=== PATIENT | male | born 1940 | race Caucasian/White ===

== ENCOUNTER 2019-06-12 09:01 | Outpatient (REF) | payer MEDICARE, SELFPAY ==
[2019-06-12 10:47] LABS: INR 1.8 (0.9-1.1); Prothrombin Time 17.4 sec (9.3-11.0)
[2019-06-12 16:34] LABS: Bilirubin Negative (Negative); Blood Negative (Negative); Clarity Clear (Clear); Glucose Negative (Negative); Ketones Negative (Negative); Leukocyte Esterase Negative (Negative); Nitrite Negative (Negative)
[2019-06-12 17:06] LABS: TSH (W/Ref FT4) 0.52 uIU/mL (0.36-3.74)
== END 2019-06-12 09:21 ==
LOC: LBN 09:01
PROVIDERS: Visit Provider Internal Medicine
DX: E03.9 Hypothyroidism, unspecified (principal); I10 Essential (primary) hypertension; I25.2 Old myocardial infarction; Z79.01 Long term (current) use of anticoagulants; N39.0 Urinary tract infection, site not specified
CPT/HCPCS: 81003; 84443; 85610; 87086

== ENCOUNTER 2019-06-25 16:23 | Outpatient (REF) | payer MEDICARE, SELFPAY ==
[2019-06-25 16:59] LABS: INR 1.7 (0.9-1.1); Prothrombin Time 17.3 sec (9.3-11.0)
== END 2019-06-25 16:43 ==
LOC: LBN 16:23
PROVIDERS: Visit Provider Internal Medicine
DX: I25.2 Old myocardial infarction (principal); Z79.01 Long term (current) use of anticoagulants
CPT/HCPCS: 85610

== ENCOUNTER 2019-07-04 19:49 | Outpatient (REF) | payer MEDICARE, SELFPAY | END 2019-07-04 20:09 | LOC: LBN 19:49 | PROVIDERS: Visit Provider Internal Medicine | DX: R69 Illness, unspecified (principal); Z53.8 Procedure and treatment not carried out for other reasons | CPT/HCPCS: 85610 ==

== ENCOUNTER 2019-07-05 09:58 | Outpatient (REF) | payer MEDICARE, SELFPAY ==
[2019-07-05 10:24] LABS: INR 2.1 (0.9-1.1); Prothrombin Time 20.6 sec (9.3-11.0)
== END 2019-07-05 10:18 ==
LOC: LBN 09:58
PROVIDERS: Visit Provider Internal Medicine
DX: I25.2 Old myocardial infarction (principal); Z79.01 Long term (current) use of anticoagulants
CPT/HCPCS: 85610

== ENCOUNTER 2019-07-22 15:34 | Outpatient (REF) | payer MEDICARE, SELFPAY ==
[2019-07-22 16:23] LABS: INR 2.1 (0.9-1.1); Prothrombin Time 20.7 sec (9.3-11.0)
== END 2019-07-22 15:54 ==
LOC: LBN 15:34
PROVIDERS: Visit Provider Internal Medicine
DX: Z79.01 Long term (current) use of anticoagulants (principal); I25.2 Old myocardial infarction
CPT/HCPCS: 85610

== ENCOUNTER 2019-08-20 21:53 | Outpatient (REF) | payer MEDICARE, MEDICAID, SELFPAY ==
[2019-08-20 17:59] LABS: INR 1.8 (0.9-1.1); Prothrombin Time 18.2 sec (9.3-11.0)
== END 2019-08-20 22:13 ==
LOC: LBN 21:53
PROVIDERS: Visit Provider Internal Medicine
DX: Z79.01 Long term (current) use of anticoagulants (principal); Z51.81 Encounter for therapeutic drug level monitoring
CPT/HCPCS: 85610

== ENCOUNTER 2019-11-27 20:54 | Observation (INO) | payer OTHER, SELFPAY ==
[2019-11-27] VITALS (8 sets, daily range): BP systolic 160–170; BP diastolic 75; PULSE 58–82; RESP 40; TEMP 37.2; O2SAT 96–100
--- NOTE | 2019-11-27 20:59 | W.ED.GENAD ---
Discharge Plan Disposition Patient Disposition: [facility] INPATIENT Condition: Poor Discharge Details Chief Complaint: Orthopedic Clinical Impression: Hip fracture Primary Care Provider: Ashlyn Bowen ED Provider: Jennie Castellanos Home Meds and New Rx's Prescriptions: No Action risperidone [Risperdal] 0.5 mg tablet 0.5 mg PO TID RF: 0 donepezil [Aricept] 10 mg tablet 10 mg PO DAILY RF: 0 vitamin E 400 unit capsule 400 unit PO DAILY RF: 0 melatonin 3 mg capsule 6 mg PO HS RF: 0 trazodone 50 mg tablet 50 mg PO QHS RF: 0 rosuvastatin 40 mg tablet 20 mg PO DAILY RF: 0 lisinopril 5 mg tablet 5 mg PO DAILY RF: 0 levothyroxine 50 mcg capsule 50 mcg PO DAILY RF: 0 finasteride 5 mg tablet 5 mg PO DAILY RF: 0 duloxetine 20 mg capsule,delayed release(DR/EC) 40 mg PO DAILY RF: 0 diltiazem HCl [Tiazac] 180 mg capsule,extended release 24 hr 180 mg PO DAILY RF: 0 cyanocobalamin (vitamin B-12) 1,000 mcg tablet 1,000 mcg PO DAILY RF: 0 cholecalciferol (vitamin D3) 25 mcg (1,000 unit) capsule 25 mcg PO DAILY RF: 0 carboxymethylcellulose sodium 0.5 % drops 1 drp OP QID RF: 0 carbamide peroxide 6.5 % drops 2 drp OT DAILY RF: 0 Medical Decision Making Patient is a pleasantly confused 79-year-old male, coming by his , with chief complaint of fall and left hip pain. reports patient is on hospice for his dementia. She reports that he has had frequent falls over the past several weeks. Fell again tonight after tripping. Reports patient is not been able to get up since the fall secondary to left hip pain. She does not believe that he had suffered further injury. No loss of consciousness. On exam, patient is notably confused. He has a shortened and externally rotated left lower extremity. Pain with palpation over the left hip. Primarily concerned for femoral neck fracture. He has 2+ distal pulses. Exam is quite limited secondary to patient's mental status. I do not see any ecchymosis or other evidence of trauma. Lungs are clear, no pain in the chest, abdomen, pelvis. Pelvis does feel stable. Patient is quite uncomfortable and kind of movement is refusing to move the left leg. X-ray reviewed was significant for a left femoral fracture. Discussed this with the . Patient is currently on hospice and she does not believe that surgical fixation would be appropriate for him. However, as the patient is unable to sit up or ambulate, will need IV pain medication and set up at home for his current situation. I did speak with hospice nursing staff who advised hospitalist to admit. Spoke with hospitalist who agrees to admission for pain management until patient is able to be set up to be discharged home HPI General Mode of arrival: EMS. Date/Time Provider Initiated Documentation: 11/27/19 20:59. Limitations to Documentation: altered mental status. Information obtained by: family (), EMS, RN notes reviewed and old records reviewed. History of Present Illness 79 year old M presents to the emergency department with the chief complaint of left hip pain, Patient started experiencing this minute(s) and it has been constant. Immobilization improves symptom(s), Movement worsens symptoms . Patient notes other (frequent falls, inability to bear weight since fall); denies syncope. Patient did receive the following treatments prior to arrival, none Related Data Home Medications Medication Instructions Recorded Confirmed carbamide peroxide 6.5 % ear drops 2 drp OT DAILY ml 06/26/19 11/27/19 carboxymethylcellulose sodium 0.5 1 drp OP QID 06/26/19 11/27/19 % eye drops cholecalciferol (vitamin D3) 25 25 mcg PO DAILY 06/26/19 11/27/19 mcg (1,000 unit) capsule cyanocobalamin (vitamin B-12) 1,000 mcg PO DAILY 06/26/19 11/27/19 1,000 mcg tablet diltiazem HCl 180 mg capsule,24 180 mg PO DAILY 06/26/19 11/27/19 hr,extended release donepezil 10 mg tablet 10 mg PO DAILY 06/26/19 11/27/19 duloxetine 20 mg capsule,delayed 40 mg PO DAILY cap 06/26/19 11/27/19 release finasteride 5 mg tablet 5 mg PO DAILY 06/26/19 11/27/19 levothyroxine 50 mcg capsule 50 mcg PO DAILY 06/26/19 11/27/19 lisinopril 5 mg tablet 5 mg PO DAILY 06/26/19 11/27/19 melatonin 3 mg capsule 6 mg PO HS cap 06/26/19 11/27/19 rosuvastatin 40 mg tablet 20 mg PO DAILY 06/26/19 11/27/19 trazodone 50 mg tablet 50 mg PO QHS 06/26/19 11/27/19 vitamin E 400 unit capsule 400 unit PO DAILY 06/26/19 11/27/19 risperidone 0.5 mg tablet 0.5 mg PO TID tab 08/08/19 11/27/19 Allergies Allergy/AdvReac Type Severity Reaction Status Date / Time Iodinated Contrast Media AdvReac Unknown Swelling/Ed Unverified 11/27/19 20:57 jaime General Stated Complaint: Orthopedic BECCA: 4 Review of Systems Unobtainable due to mental status PFSH Medical History Aggressive behavior due to dementia no longer aggressive, per Alzheimers disease At risk for unsafe behavior Benign essential hypertension Benign prostatic hyperplasia Benign prostatic hyperplasia with urinary frequency Chest pain ETT negative at 10 mets Roldan-Morse respiration Cholelithiasis NOS Chronic ischemic heart disease IWMI 06/15, stenting RCA with 2 stents; EF 45% multiple WMA; Mild MR; Mild TR 06/21/02- 3 vessel disease; Prox and mid LAD, Prox LCX, RCA 10/16/02- Dobut stress echo; No ischemia 130 bpm/84% max pred 10/1606/11/06- Stress Test 01/18; EF 45-50% 03/14/18- 02/21 clinic visit w/ local medical referral coordinator/niacin Cognitive disorder Colonic polyp CPAP (continuous positive airway pressure) dependence still wears it regularly Disturbance of consciousness Dizziness and giddiness DNI (do not intubate) DNR (do not resuscitate) Elevated PSA Bx fibroglandular hyperplasia Encounter for hospice care discussion Family history of identical twins his twin 2012 from Alz Dz Fatty liver Frequent falls Goals of care, counseling/discussion Hemorrhoids Hoarding behavior family trying to get rid of excess he perseverates on his tools [place] (hard of hearing) will not wear his hearing aids hides them Hyperlipidemia Hypertriglyceridemia Impotence Insomnia Knee pain Mixed Alzheimer's and vascular dementia advanced, severe Nephrolithiasis Osteoarthritis Palliative care patient POLST (Physician Orders for Life-Sustaining Treatment) 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: got his GED in the [place] after going to trade school thru 10th grade Do you need help understanding health information?: Always current occupation: retired from [employer] What is your relationship status?: How often do you talk on the phone with friends or family?: never How often do you get together with friends or relatives?: twice per week Panel score (0-1 are the most socially isolated patients): 1 What type of physical activity do you participate in: walking and assisted ambulation Duration: 15-30 minutes/day Frequency: daily Special jamaal needs: No Seatbelt use: always Working smoke detector in home: Yes Fire extinguisher in home: Yes Do you feel safe at home: Yes Do you feel safe in your relationship?: Yes Additional Social history: Sally and [id number] Kiesha are his primary caregivers. Daughter lives in [place], but comes and helps when she can on weekends. Estranged from only son in [place]. He has 2 children, also out of touch. Wandering at night. exhausted. Continues to decline dramatically in 2020. Qualifies for hospice; not quite ready for this. Consult ordered Derick hides his hearing aids, refuses to wear them and his glasses. Does wear his CPAP at night though. Hasn't fallen recently. Very unsteady gait, very difficult to get out of his chair. Exam Const General: cooperative, healthy appearing, comfortable and no acute distress Nutritional Appearance: average body habitus and well nourished Orientation: alert, awake and not oriented x3 [facility] Head: normal to inspection, no palpable skull fracture, normocephalic and atraumatic Face and sinus: normal facial exam Eyes General: appearance normal, both eyes and all related structures Neck Neck: normal visual inspection, no meningeal signs and trachea midline Chest Chest: normal inspection of the chest, normal palpation of entire chest wall and no localized rib tenderness Resp Effort & Inspection: normal respiratory effort, able to speak in complete sentences and no respiratory distress Auscultation: clear to auscultation bilaterally Cardio Rate: regular rate Rhythm: regular rhythm Heart Sounds: S1 normal and S2 normal GI Inspection: normal to inspection Palpation: soft, no hepatosplenomegaly and nontender Skin General skin exam: no rashes or lesions noted Neuro General: patient alert, patient awake and not oriented x3 Gait: gait abnormal (unable to weight bear since injury) Extrem Left lower extremity: abnormal to inspection (externally rotated, shortened. 2+ distal pulses) Psych Appearance: grossly normal and well kempt Mental Status: mental status grossly normal Speech and Movement: speech and movement normal Course Vital Signs Vital signs: Vital Signs Temperature 37.2 C 11/27/19 20:51 Pulse 82 11/27/19 20:51 Respiratory Rate 40 H 11/27/19 20:51 Blood Pressure 170/75 H 11/27/19 20:51 Pulse Oximetry 100 11/27/19 20:51 Temperature 37.2 C 11/27/19 20:51 Temperature Source Skin 11/27/19 20:51 Pulse 82 11/27/19 20:51 Respiratory Rate 40 H 11/27/19 20:51 Blood Pressure 170/75 H 11/27/19 20:51 Blood Pressure Position Supine 11/27/19 20:51 Pulse Oximetry 100 11/27/19 20:51 Oxygen Delivery Method Room Air 11/27/19 20:51 Oxygen Flow Rate 0 11/27/19 20:51 Comment 11/27/19 20:51
--- NOTE | 2019-11-27 21:15 | DI.RAD_ITS ---
EXAM: XR HIP LT COMPLETE AP PELVIS CLINICAL HISTORY: fall. TECHNIQUE: 2D digital imaging was performed. COMPARISON: No exams were available for comparison FINDINGS: BONES: There is an acute comminuted intertrochanteric fracture of the left femur with moderate displa cement. No bony destructive lesion is seen. JOINTS: Degenerative changes are seen in the hips bilaterally. SOFT TISSUE: Vascular calcifications are seen in the soft tissues. IMPRESSION: Comminuted intertrochanteric fracture of the left femur. DATA REPOSITORY: RADIATION DOSE DELIVERED:
--- NOTE | 2019-11-27 22:18 | HPE_ITS ---
Date of service: 11/27/19 Time of Service: 22:18 Assessment and Plan Assessment and plan (1) Hip fracture: Status: Acute Assessment and plan: Hip fracture. Per 's wishes will not pursue any surgical intervention, will treat symptomatically. Will consult palliative care for follow up. History of Present Illness History of Present Illness Chief Complaint: fall Narrative: 79 male with advanced dementia, frequent falls. Fell tonight. In ER left hip fracture noted. indicates she does not want any surgical intervention, wishes treatment towards comfort. Mainly she wishes to find a way to bring him back home for whatever remaining time he has. Patient unable to provide any history but not evidencing any discomfort. Admitted for further management. Review of Systems Unobtainable due to mental condition PFSH Medical History Aggressive behavior due to dementia no longer aggressive, per Alzheimers disease At risk for unsafe behavior Benign essential hypertension Benign prostatic hyperplasia Benign prostatic hyperplasia with urinary frequency Chest pain ETT negative at 10 mets Roldan-Morse respiration Cholelithiasis NOS Chronic ischemic heart disease IWMI 06/15, stenting RCA with 2 stents; EF 45% multiple WMA; Mild MR; Mild TR 06/21/02- 3 vessel disease; Prox and mid LAD, Prox LCX, RCA 10/16/02- Dobut stress echo; No ischemia 130 bpm/84% max pred 10/1606/11/06- Stress Test 01/18; EF 45-50% 03/14/18- 02/21 clinic visit w/ local dental assistant medical assistant/niacin Cognitive disorder Colonic polyp CPAP (continuous positive airway pressure) dependence still wears it regularly Disturbance of consciousness Dizziness and giddiness DNI (do not intubate) DNR (do not resuscitate) Elevated PSA Bx fibroglandular hyperplasia Encounter for hospice care discussion Family history of identical twins his twin 2012 from Alz Dz Fatty liver Frequent falls Goals of care, counseling/discussion Hemorrhoids Hoarding behavior family trying to get rid of excess he perseverates on his tools [place] (hard of hearing) will not wear his hearing aids hides them Hyperlipidemia Hypertriglyceridemia Impotence Insomnia Knee pain Mixed Alzheimer's and vascular dementia advanced, severe Nephrolithiasis Osteoarthritis Palliative care patient POLST (Physician Orders for Life-Sustaining Treatment) 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: got his GED in the [place] after going to trade school thru 10th grade Do you need help understanding health information?: Always current occupation: retired from [employer] What is your relationship status?: How often do you talk on the phone with friends or family?: never How often do you get together with friends or relatives?: twice per week Panel score (0-1 are the most socially isolated patients): 1 What type of physical activity do you participate in: walking and assisted ambulation Duration: 15-30 minutes/day Frequency: daily Special jamaal needs: No Seatbelt use: always Working smoke detector in home: Yes Fire extinguisher in home: Yes Do you feel safe at home: Yes Do you feel safe in your relationship?: Yes Additional Social history: Sally and [id number] Kiesha are his primary caregivers. Daughter lives in [place], but comes and helps when she can on weekends. Estranged from only son in [place]. He has 2 children, also out of touch. Wandering at night. exhausted. Continues to decline dramatically in 2020. Qualifies for hospice; not quite ready for this. Consult ordered Derick hides his hearing aids, refuses to wear them and his glasses. Does wear his CPAP at night though. Hasn't fallen recently. Very unsteady gait, very difficult to get out of his chair. Meds Home Medications and Allergies Home Medications Medication Instructions Recorded Confirmed Type carbamide peroxide 6.5 % ear drops 2 drp OT DAILY ml 06/26/19 11/27/19 History carboxymethylcellulose sodium 0.5 1 drp OP QID 06/26/19 11/27/19 History % eye drops cholecalciferol (vitamin D3) 25 25 mcg PO DAILY 06/26/19 11/27/19 History mcg (1,000 unit) capsule cyanocobalamin (vitamin B-12) 1,000 mcg PO DAILY 06/26/19 11/27/19 History 1,000 mcg tablet diltiazem HCl 180 mg capsule,24 180 mg PO DAILY 06/26/19 11/27/19 History hr,extended release donepezil 10 mg tablet 10 mg PO DAILY 06/26/19 11/27/19 History duloxetine 20 mg capsule,delayed 40 mg PO DAILY cap 06/26/19 11/27/19 History release finasteride 5 mg tablet 5 mg PO DAILY 06/26/19 11/27/19 History levothyroxine 50 mcg capsule 50 mcg PO DAILY 06/26/19 11/27/19 History lisinopril 5 mg tablet 5 mg PO DAILY 06/26/19 11/27/19 History melatonin 3 mg capsule 6 mg PO HS cap 06/26/19 11/27/19 History rosuvastatin 40 mg tablet 20 mg PO DAILY 06/26/19 11/27/19 History trazodone 50 mg tablet 50 mg PO QHS 06/26/19 11/27/19 History vitamin E 400 unit capsule 400 unit PO DAILY 06/26/19 11/27/19 History risperidone 0.5 mg tablet 0.5 mg PO TID tab 08/08/19 11/27/19 History Allergies Allergy/AdvReac Type Severity Reaction Status Date / Time Iodinated Contrast Media AdvReac Unknown Swelling/Ed Unverified 11/27/19 20:57 jaime Exam Narrative Exam Narrative: 170/75, 82, 37.2, 18 (40 is last recorded, not to my exam), 100% RA. HEENT atraumatic; neck supple; lungs clear; heart RRR; abdomen soft and NT; extremities LLE everted and foreshorten\ed, distal CSM intact Results Last Vital Signs Temp 37.2 C 11/27/19 20:51 Pulse 82 11/27/19 20:51 Resp 40 H 11/27/19 20:51 BP 170/75 H 11/27/19 20:51 Pulse Ox 100 11/27/19 20:51 COVID-19 Screening Have you,or household,traveled outside [place] in last 14 days?: No Had IN PERSON contact w/suspected or confirmed C-19 person: No
[2019-11-27] MEDS: Normal Saline Flush 10 ML SYR IVP (22:22)
[2019-11-27] MEDS: Ketorolac 15 MG/ML VIAL IVP (22:22)
[2019-11-27] MEDS: ACETAMINOPHEN 1,000 MG/100 ML BTL 400 MG IVPB (22:28)
[2019-11-28 00:18] VITALS: BP 159/80; PULSE 71; RESP 16; TEMP 37.2; O2SAT 99
[2019-11-28] MEDS: Lidocaine 2% Jelly 11 ML SYR UR (00:50)
[2019-11-28] MEDS: Levothyroxine 50 MCG TAB PO (05:56)
[2019-11-28] MEDS: Normal Saline Flush 10 ML SYR IVP ×4 (07:43→20:58)
[2019-11-28 08:00] VITALS: BP 147/73; PULSE 67; RESP 16; TEMP 36.1; O2SAT 99
--- NOTE | 2019-11-28 08:08 | NUR.NOTE ---
Nursing Note: Patient unable to verbally give a pain scale 0-10. Patient did show facial grimacing and swear
[2019-11-28] MEDS: dilTIAZem CD 180 MG CAPCR PO (08:37)
[2019-11-28] MEDS: DULoxetine 20 MG CAP 40 MG PO (08:38)
[2019-11-28] MEDS: Lisinopril 5 MG TAB PO (08:38)
[2019-11-28] MEDS: risperiDONE 0.5 MG TAB PO ×3 (08:38→20:38)
[2019-11-28] MEDS: Finasteride 5 MG TAB PO (08:38)
--- NOTE | 2019-11-28 11:42 | PGE_ITS ---
Date of Service Date of service: 11/28/19 Time of Service: 10:44 Assessment and Plan Assessment and plan (1) Hip fracture: Status: Acute Assessment and plan: Left hip, partially displaced. Will be bedbound for at least several week. Will work with hospice team to get a hospital bed into his home while he is hospitalized here Pain not yet adequately controlled. Will continue on symptom management until he can tolerate movement in bed enough for and others to do his personal care. (2) Hospice care patient: Status: Chronic Assessment and plan: On hospice for his Alzheimer's dementia. Was fall frequently prior to him coming on hospice. Still at high risk for falls IF he is able to get OOB in the future. Explained to that hip fracture often shortens a patient's life significantly, due to the shock of the fracture alone... (3) Pain due to fracture: Status: Acute Assessment and plan: Explained that a broken bone such as a hip/femur usually requires narcotic pain medicine. Sally, his , admits she will have trouble keeping up with his pain medication. She is afraid that it will hasten his . We discussed 3 options for Derick's pain control: fentanyl patch at 12 mcg; morphine pump SC at 2-4 mg/hr (She doesn't want morphine, fears it); or hydromorphone by pump. I didn't think he needed such a strong medication as hydromorphone given his usual pain tolerance. She agrees that continuous pain control is the way to go. She opted for the patch. We will need to monitor him for 24-48 hrs to see if he tolerates the patch given that he is narcotic naive. (4) Frequent falls: Status: Chronic Assessment and plan: Getting worse over time. Related, I believe, to his dementia. Cause of his hip fracture. (5) Mixed Alzheimer's and vascular dementia: Status: Chronic Assessment and plan: Advanced. On hospice for same at home. still struggling with her 's illness, even though she recognizes that his identical twin 6 years ago of the same illness. (6) Alzheimers disease: Status: Chronic Qualifiers: Alzheimer's disease onset: late-onset Dementia behavioral disturbance: without behavioral disturbance Qualified Code(s): G30.1 - Alzheimer's disease with late onset; F02.80 - Dementia in other diseases classified elsewhere without behavioral disturbance Subjective Subjective Patient reports: still having pain Interval history since last seen: Derick fell at home and broke his hip. His pain was too great to control at home; his was advised by my colleague, Milena Bautista, to call the ambulance and have him brought to the ER. He was initially admitted on the hospitalist service, as there was confusion about his hospice status. I did review ANTONIETA Abraham's note from his ER visit; she was aware that Derick was already on hospice. However, this was somehow lost in translation. Given the fact that his fall is likely related to his Alzheimer's dementia, which is his hospice admitting diagnosis, he should be on hospice symptom management for this admission. His nurse, Paola and nursing assistants teacher [place] reported that Derick does have significant pain with movement. His was encouraging them NOT to give Derick morphine as she was afraid that it would make him worse. I explained when I came in that a fracture of a long bone is particularly painful for most people and I wanted to work with her to choose which pain control method she could support for her . NSAIDs alone are not appropriate for him in this context. Exam Narrative Exam Narrative: Gen: Elderly thin man lying in bed, on his back, with a furrowed brow, minimally responsive with words, doesn't answer most questions Neuro: oriented only to self, unclear whether he recognized his , was staring off for most of my visit, moving BUE Lungs: CTAB Heart: regular, no murmur noted Abd: slender, soft,+ bs wnl, no masses Neck: no LAD, no JVD Head: atraumic, no bruising, no tenderness Skin: male pattern baldness, no facial bruising, dry skin : has a zepeda in place, draining caryn urine psych: no signs of agitation, does have advanced dementia] ext: does have leg-length discrepancy and inward rotation of left leg: LEFT FEMUR FX Objective Last Vital Signs Temp 97.0 F L 11/28/19 08:00 Pulse 67 11/28/19 08:00 Resp 16 11/28/19 08:00 BP 147/73 H 11/28/19 08:00 Pulse Ox 99 11/28/19 08:00
[2019-11-28] MEDS: fentaNYL 12 MCG PATCH TD (12:00)
[2019-11-28 12:35] LABS: COVID-19 RT-PCR UVMMC Result Negative (Negative)
[2019-11-28] MEDS: ACETAMINOPHEN 1,000 MG/100 ML BTL 400 MG IVPB (14:14)
[2019-11-28] MEDS: Refresh PLUS Eye Drops 0.4ml OU (14:15)
--- NOTE | 2019-11-28 14:41 | INITIAL_ITS ---
- If Service Date Differs Date of service: 11/28/19 Time of Service: 14:41 Care Management Initial Assess REASON FOR HOSPITALIZATION:: Hip Fracture PAST MEDICAL HISTORY/PAST SURGICAL HISTORY:: Medical History. Aggressive behavior due to dementia. no longer aggressive, per . Alzheimers disease. At risk for unsafe behavior. Benign essential hypertension. Benign prostatic hyperplasia. Benign prostatic hyperplasia with urinary frequency. Chest pain. ETT negative at 10 mets. Roldan-Morse respiration. Cholelithiasis NOS. Chronic ischemic heart disease. IWMI 06/15, stenting RCA with 2 stents; EF 45% multiple WMA; Mild MR; Mild TR. 06/21/02- 3 vessel disease; Prox and mid LAD, Prox LCX, RCA. 10/16/02- Dobut stress echo; No ischemia 130 bpm/84% max pred 10/16. 06/11/06- Stress Test 01/18; EF 45-50%. 03/14/18- 02/21 clinic visit w/ local director banking/jung. Cognitive disorder. Colonic polyp. CPAP (continuous positive airway pressure) dependence. still wears it regularly. Disturbance of consciousness. Dizziness and giddiness. DNI (do not intubate). DNR (do not resuscitate). Elevated PSA. Bx fibroglandular hyperplasia. Encounter for hospice care discussion. Family history of identical twins. his twin 2012 from Alz Dz. Fatty liver. Frequent falls. Goals of care, counseling/discussion. Hemorrhoids. Hoarding behavior. family trying to get rid of excess. he perseverates on his tools. [place] (hard of hearing). will not wear his hearing aids. hides them. Hyperlipidemia. Hypertriglyceridemia. Impotence. Insomnia. Knee pain. Mixed Alzheimer's and vascular dementia. advanced, severe. Nephrolithiasis. Osteoarthritis. Palliative care patient. POLST (Physician Orders for Life-Sustaining Treatment). 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 Sensorineural hearing loss. Shortness of breath. Sleep apnea, unspecified. Has C-pap machine. Spinal stenosis, lumbar. Squamous cell carcinoma in situ of skin. Subjective tinnitus. Tubular adenoma of colon. Unintentional weight loss. 50 lbs lost in 1 year. Unsteady gait. [place] [employer]. 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 Surgical History. History of cholecystectomy PREVIOUS FUNCTIONAL STATUS/SOCIAL/FAMILY SUPPORTS:: Derick lives in [place] with his , Sally. He is currently on Hospice due to his Alzheimers disease. His is his health care administrator, whom he is dependent on for his ADL's. CURRENT FUNCTIONAL STATUS:: Derick was lying in bed when CM attempted to meet with him. He was resting, and his was no longer in the room with him. Earlier, they met with Dr. Bowen, who discussed their Hospice support. Sally requested a hospital bed, and CM informed Ali at Hospice of this need. Per MD, he may be ready for discharge in 2-3 days. CM will continue to follow. ADVANCE DIRECTIVES:: [facility] on file, Sally listed as agent. Has patient been provided with info about the portal/API?: No Did the patient sign up for the portal?: No CODE STATUS:: DNR/DNI INSURANCE COVERAGE / FINANCIAL ISSUES:: [facility] / [facility] CURRENT HOME/COMMUNITY SERVICES/EQUIPMENT:: Derick is on Hospice, and his is his primary childcare director. They are requesting equipment prior to discharge. CM will determine equipment needs and work with Hospice to provide them. PRIMARY CARE PHYSICIAN:: Dr. Bowen POTENTIAL DISCHARGE NEEDS:: Equipment needs, goals of care. PATIENT/FAMILY EDUCATION NEEDS:: Review discussion of pain management, goals of care and expectations of Hospice. ANTICIPATED BARRIERS TO DISCHARGE:: None identified at this time. TRANSPORTATION:: To be determined. PLAN:: Anticipate Derick will return home after his symptoms are managed, and when his equipment needs at home are addressed. CM will continue to follow and support discharge planning considerations.
--- NOTE | 2019-11-28 14:51 | CHAPLAIN ---
I was visiting with Sally and Derick when Dr. Bowen arrived. She knows Derick from her Palliative Care practice. Derick has been falling at home Sally said, and usually she is able to pick him up. His broke his hip during this fall. Derick has significant dementia. Sally is is caregiver and sometimes has help from her sister. Dr. Bowen describes Sally as a devoted caregiver, and explains to Sally that she will need help to care for Derick when he returns home. Sally said she has watched the nurses reposition Derick and she knows she can't do that by herself at home. Derick has a steady stare, which isn't usual, according to Dr. Bowen, but he does respond to her when she speaks directly him. I will continue to visit.
--- NOTE | 2019-11-28 16:04 | DI.VRAD_ITS ---
PROCEDURE INFORMATION: Exam: XR Left Hip with Pelvis when Performed Exam date and time: 11/27/2019 9:38 PM Age: 79 years old Clinical indication: Injury or trauma; Fall; Blunt trauma (contusions or hematomas); Left; Hip TECHNIQUE: Imaging protocol: XR Left hip with pelvis when performed. Views: 2 or 3 views. COMPARISON: No relevant prior studies available. FINDINGS: Bones/joints: Intertrochanteric, comminuted fracture of the left femur. Degenerative changes. Soft tissues: Vascular calcifications. IMPRESSION: Fracture of the left femur. Dictated and Authenticated by: Jake Mansfield MD. Ordering:DAVID Schneider MD
[2019-11-28] MEDS: Melatonin 3 MG TAB 6 MG PO (22:41)
[2019-11-28] MEDS: Donepezil 5 MG TAB 10 MG PO (22:41)
[2019-11-28] MEDS: traZODone 50 MG TAB PO (22:42)
[2019-11-28] MEDS: Senna TAB PO (22:42)
[2019-11-29] MEDS: Levothyroxine 50 MCG TAB PO (05:45)
[2019-11-29] MEDS: risperiDONE 0.5 MG TAB PO ×2 (09:43→14:06)
[2019-11-29] MEDS: dilTIAZem CD 180 MG CAPCR PO (09:43)
[2019-11-29] MEDS: Finasteride 5 MG TAB PO (09:43)
[2019-11-29] MEDS: Lisinopril 5 MG TAB PO (09:43)
[2019-11-29] MEDS: DULoxetine 20 MG CAP 40 MG PO (09:43)
--- NOTE | 2019-11-29 10:18 | DSE_ITS ---
Date of service: 11/29/19 Time of Service: 10:18 DS: Diagnosis Discharge Diagnosis (1) Hip fracture: Status: Acute Asessment and Plan: After discussion with orthopedist Dr Jeffery Olivarez decided that his pain would be better controlled with surgery. We have tried low dose fentanyl patch but even with 12 mcg patch he is sedated. Dr Olivarez thinks that pinning the hip in a simple surgery would give Derick improved pain. He is being discharged from hospice and going on to the hospitalist service with an orthopedic consult. Plan is surgery tomorrow and then home on hospice on Monday. Note that he is off his anticoagulation. He did not receive lovenox in the ER or when he was first admitted. (2) Hospice care patient: Status: Chronic Asessment and Plan: coming off with Sally revoking on [place]'s behalf will come back on at discharge thinks, at this time, that she wants to have him go home directly (3) Pain due to fracture: Status: Acute Asessment and Plan: Tried fentanyl patch. Too sleepy. open to surgical pinning now. Dr Olivarez and Teresa Skinner MANAGER HEAVY DUTY both aware of plan. (4) Frequent falls: Status: Chronic Asessment and Plan: Remains at high risk in his baseline state. Once his pain is controlled I think he will try to move on his own again. (5) Mixed Alzheimer's and vascular dementia: Status: Chronic (6) Alzheimers disease: Status: Chronic Asessment and Plan: This is his reason for hospice admission. Discharge Plan Disposition Condition: Poor Discharge Details Reason For Visit: HIP FRACTURE; HOSPICE SYMPTOM MANAGEMENT Admit Date/Time: 11/27/19 22:28 Admit Provider: Ashlyn Bowen Attending Provider: Ashlyn Bowen Primary Care Provider: Ashlyn Bowen Home Meds and New Rx's Prescriptions: No Action risperidone [Risperdal] 0.5 mg tablet 0.5 mg PO TID RF: 0 donepezil [Aricept] 10 mg tablet 10 mg PO DAILY RF: 0 vitamin E 400 unit capsule 400 unit PO DAILY RF: 0 melatonin 3 mg capsule 6 mg PO HS RF: 0 trazodone 50 mg tablet 50 mg PO QHS RF: 0 rosuvastatin 40 mg tablet 20 mg PO DAILY RF: 0 lisinopril 5 mg tablet 5 mg PO DAILY RF: 0 levothyroxine 50 mcg capsule 50 mcg PO DAILY RF: 0 finasteride 5 mg tablet 5 mg PO DAILY RF: 0 duloxetine 20 mg capsule,delayed release(DR/EC) 40 mg PO DAILY RF: 0 diltiazem HCl [Tiazac] 180 mg capsule,extended release 24 hr 180 mg PO DAILY RF: 0 cyanocobalamin (vitamin B-12) 1,000 mcg tablet 1,000 mcg PO DAILY RF: 0 cholecalciferol (vitamin D3) 25 mcg (1,000 unit) capsule 25 mcg PO DAILY RF: 0 carboxymethylcellulose sodium 0.5 % drops 1 drp OP QID RF: 0 carbamide peroxide 6.5 % drops 2 drp OT DAILY RF: 0 DS: Summary Status at Discharge Functional status at discharge: bed bound Overall status at discharge: patient is not back to baseline Mental Status: other (sleepy, in setting of advanced dementia) Speech and Movement: mute and slowed movement Mood: congruent mood Affect: normal affect Exam Narrative Exam Narrative: Gen: Elderly thin man lying in bed, on his back, with a furrowed brow, minimally responsive with words, doesn't answer most questions Neuro: oriented only to self, unclear whether he recognized his , was staring off for most of my visit, moving BUE Lungs: CTAB Heart: regular, no murmur noted Abd: slender, soft,+ bs wnl, no masses Neck: no LAD, no JVD Head: atraumic, no bruising, no tenderness Skin: male pattern baldness, no facial bruising, dry skin : has a zepeda in place, draining caryn urine psych: no signs of agitation, does have advanced dementia] ext: does have leg-length discrepancy and inward rotation of left leg: LEFT FEMUR FX Psych Speech and Movement: mute and slowed movement Mood: congruent mood Affect: normal affect DS: Data Vitals/I&O Vitals and I&O: Vital Signs Temperature 97.0 F L 11/28/19 08:00 Temperature Source Tympanic 11/28/19 08:00 Pulse 67 11/28/19 08:00 Pulse Rhythm Regular 11/28/19 07:40 Respiratory Rate 16 11/28/19 08:00 Respiratory Effort 11/29/19 03:37 Respiratory Depth Shallow 11/29/19 03:37 Respiratory Pattern Normal 11/29/19 03:37 Blood Pressure 147/73 H 11/28/19 08:00 Blood Pressure Mean 96 11/27/19 21:00 Blood Pressure Position Supine 11/27/19 20:51 Pulse Oximetry 99 11/28/19 08:00 Oxygen Delivery Method Room Air 11/28/19 08:00 Oxygen Flow Rate 0 11/28/19 08:00 Comment 11/27/19 20:51 Intake & Output 11/28/19 11/28/19 11/29/19 11:59 23:59 11:59 Intake Total 260 / 860 600 / 860 Output Total 275 / 745 470 / 745 325 / 325 Balance -15 / 115 130 / 115 -325 / -325 Intake: IV 20 / 140 120 / 140 Oral 240 / 720 480 / 720 Output: Urine 275 / 745 470 / 745 325 / 325 Other: Urine Color Yellow Brown Brown Urine Appearance Clear Clear Clear Data Completed and Pending Labs on day of discharge: Labs from last 24 hours 11/27/19 23:21 COVID-19 PCR Negative Nasopharyn COVID-19 PCR Not Applicable Ref Test Perform Site [place] [facility] lab PFS Medical History Aggressive behavior due to dementia no longer aggressive, per Alzheimers disease At risk for unsafe behavior Benign essential hypertension Benign prostatic hyperplasia Benign prostatic hyperplasia with urinary frequency Chest pain ETT negative at 10 mets Roldan-Morse respiration Cholelithiasis NOS Chronic ischemic heart disease IWMI 06/15, stenting RCA with 2 stents; EF 45% multiple WMA; Mild MR; Mild TR 06/21/02- 3 vessel disease; Prox and mid LAD, Prox LCX, RCA 10/16/02- Dobut stress echo; No ischemia 130 bpm/84% max pred 10/1606/11/06- Stress Test 01/18; EF 45-50% 03/14/18- 02/21 clinic visit w/ local referral and information aide/niacin Cognitive disorder Colonic polyp CPAP (continuous positive airway pressure) dependence still wears it regularly Disturbance of consciousness Dizziness and giddiness DNI (do not intubate) DNR (do not resuscitate) Elevated PSA Bx fibroglandular hyperplasia Encounter for hospice care discussion Family history of identical twins his twin 2012 from Alz Dz Fatty liver Frequent falls Goals of care, counseling/discussion Hemorrhoids Hoarding behavior family trying to get rid of excess he perseverates on his tools [place] (hard of hearing) will not wear his hearing aids hides them Hospice care patient Hyperlipidemia Hypertriglyceridemia Impotence Insomnia Knee pain Mixed Alzheimer's and vascular dementia advanced, severe Nephrolithiasis Osteoarthritis Pain due to fracture Palliative care patient POLST (Physician Orders for Life-Sustaining Treatment) 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 Do you need help understanding health information?: Always current occupation: retired from [employer], [employer] What is your relationship status?: How often do you talk on the phone with friends or family?: never How often do you get together with friends or relatives?: twice per week Panel score (0-1 are the most socially isolated patients): 1 What type of physical activity do you participate in: walking and assisted ambulation Duration: 15-30 minutes/day Frequency: daily Special jamaal needs: No Seatbelt use: always Working smoke detector in home: Yes Fire extinguisher in home: Yes Do you feel safe at home: Yes Do you feel safe in your relationship?: Yes Additional Social history: Sally and [id number] Kiesha are his primary caregivers. Daughter lives in [place], but comes and helps when she can on weekends. Estranged from only son in [place]. He has 2 children, also out of touch. Wandering at night. exhausted. Continues to decline dramatically in 2020. Qualifies for hospice; not quite ready for this. Consult ordered Derick hides his hearing aids, refuses to wear them and his glasses. Does wear his CPAP at night though. Hasn't fallen recently. Very unsteady gait, very difficult to get out of his chair.
[2019-11-29] MEDS: MORPHine 10 MG/ML VIAL IVP (13:41)
[2019-11-29] MEDS: Normal Saline Flush 10 ML SYR IVP (13:42)
--- NOTE | 2019-11-29 13:59 | CHAPLAIN ---
Sally was feeding Clifton breakfast when I visited this morning. Dr. Bowen arrived and told Sally and Dr. Olivarez believes that taking Clifton to surgery and pinning his hip will provide him with better pain control. Derick fell at home Monday and broke his hip. He is a hospice patient with dementia and has been having falls lately. Sally cares for him 05/09, with some assistance from her daughter in [place]. Sally is struggling with the decision about the surgery. She worries about giving Derick too much medication and she also worries about him being in pain. Insurance and the cost of surgery are also a concern for her. Sally took care her mother, who had osteoporosis, and following surgery. Sally believes she made the wrong decision for her mother to have surgery, and she said that experience affects how she considers this surgery for Clifton. I tried to assure her that whatever decision she made she was doing so based on what she believes is best for Clifton and he would trust her on that. Carolyn and Derick's daughter is arriving today to be with Sally and support her. I saw Sally again after she met with Dr. Olivarez and she said Dr. Olivarez was very nice, thorough in answering her questions and provided more information. If Sally agrees with the surgery for Clifton, it will likely happen tomorrow morning. Antonette Mcdonald, the [facility] flower grower [facility], will also visit Sally at home, and has been making regular visits there. Sally said she has always had questions about her jamaal. She reads the Bible, and trusts the stories as good guidance, but Sally said she continues to search for what she believes to be truths. She has good support from her sister and Antonette.
--- NOTE | 2019-11-29 15:11 | W.NUTRFU ---
Date of service: 11/29/19 Time of Service: 15:11 Nutritional Follow up NOTE: 79 year old male admitted s/p fall with hip fracture. On hospice care management. Following regular meal plan with excellent intake (>75%). BMI on low end of normal. Will continue to follow and provide meal preferences. Time Spent in Nutritional Counseling and Treatment: 0 time spent face to face
--- NOTE | 2019-11-29 15:38 | CMPROGNOTE_ITS ---
- If Service Date Differs Date of service: 11/29/19 Time of Service: 15:38 Care Management Progress Note S/O: CM met with Sally, Derick's , while Derick was resting today. Sally appeared very emotional, and discussed the choice that she needs to make today, which is whether or not to operate on Derick's hip fracture. She expressed concern about not having the surgery, as she feels that he will be medicated for the rest of his life, making it difficult to communicate with him. She also has concern about having the surgery, as her mother three days after having surgery, and she was heavily medicated because she was in so much pain. She stated that their 54th anniversary is next week, and she is having a hard time dealing with his decline. She reported that he has fallen in her presence, despite her efforts to keep him safe. She had questions about insurance, which CM answered. Later in the day, Dr. Olivarez met with Sally, and also called and spoke to Sally's daughter. After much consideration, Sally decided to move forward with surgery. Dr. Olivarez will perform the surgery tomorrow. Dr. Bowen discharged Derick from Hospice, and a new inpatient account was created for Derick to have his surgery under his [facility] benefit. Once he is recovered from surgery, he will be placed on Hospice again, if the family wishes. CM will continue to follow. A: Derick is an 79 year old male admitted to [facility] with a Hip Fracture on 11/27/19. P: Derick will go to surgery to repair his hip fracture tomorrow. Once he is recovered, the family will decide to take him home with Hospice support, or to go to a SNF if needed. Anticipate the family will bring him home on Hospice. Transportation will be determined by mobility at time of discharge. If going home, the family will need a hospital bed, coordinated by Hospice. CM will continue to follow and support discharge planning considerations.
[2019-11-29 17:06] LABS: INR 1.3 (0.9-1.1); Prothrombin Time 13.3 sec (9.3-11.0)
--- NOTE | 2019-12-04 16:32 | PDOC.CMPRO ---
- If Service Date Differs Date of service: 12/04/19 Time of Service: 16:32 Care Management Progress Note S/O: Derick was lying in bed when CM met with him and his , Sally. KAREN was informed this morning that per [place] MARTIN, visitation at [facility] will be suspended until further notice, out of an abundance of caution. As this was Sally's main concern with sending Derick to [facility], CM had a discussion with her about how this will effect her decision. Sally declined sending Derick to [facility] for this reason. CM discussed next steps with Sally, knowing that her goal is to take Derick home for end of life care with Hospice support. CM offered that Derick stay at [facility] on SWB2 until 12/09/19, when he will be discharged home. KAREN explained that he would no longer have PT at [facility], as he does not meet criteria for SWB1. Sally agreed to this plan. CM completed the [facility] paperwork with Sally and addressed any questions and concerns she had regarding this admission. CM will continue to follow. A: Derick is an 79 year old male admitted to [facility] on 11/29/19 for Left Hip Fx. P: Derick will transition to B2 today for comfort measures, and for Sally to prepare to take him home on 12/09/19. He will transport home via ambulance. CM will coordinate Hospice admission, including meeting equipment needs for his discharge. CM will continue to follow and support discharge planning considerations.
== END 2019-11-29 16:05 | disposition short-term general hospital (02) ==
LOC: ER 23:23 → MS 23:55
PROVIDERS: Student in an Organized Health Care Education/Training Program; Admitting Provider Family Medicine; Emergency Provider Physician Assistant; PCP Family Medicine; Visit Provider Family Medicine
DX: S72.009A Fracture of unspecified part of neck of unspecified femur, initial encounter for closed fracture (principal); Z51.5 Encounter for palliative care; G89.11 Acute pain due to trauma; R29.6 Repeated falls; G30.1 Alzheimer's disease with late onset; F02.80 Dementia in other diseases classified elsewhere, unspecified severity, without behavioral disturbance, psychotic disturbance, mood disturbance, and anxiety; F01.50 Vascular dementia, unspecified severity, without behavioral disturbance, psychotic disturbance, mood disturbance, and anxiety
CPT/HCPCS: 36415; 80048; 96365; 96375; 99219; 99222; 99233; 99239; 99285; U0003; 73502; 85610; J0131; J1885; J2270

== ENCOUNTER 2019-11-29 15:29 | Inpatient (IN) | payer MEDICARE, MEDICAID, SELFPAY ==
--- NOTE | 2019-11-29 15:30 | RT.EKG_ITS ---
APPROVED REPORT Exam: Resting ECG Patient Location: I HR:72 bpm ECG Measurements Heart Rate 72 AXIS IA 129 P 110 QRSd 99 QRS 30 QT 392 T 39 QTc 429 Conclusion Sinus rhythm...normal P axis, V-rate 60- 99
--- NOTE | 2019-11-29 15:33 | HPE_ITS ---
Date of service: 11/29/19 Time of Service: 15:33 Assessment and Plan Assessment and plan (1) Fracture, intertrochanteric, left femur: Status: Acute Assessment and plan: Traumatic. NPO for surgery tomorrow. Pain is controlled. Palliative care is consulted to help with plans on discharge. 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 For now, continue risperidone 0.5 mg PO TID, trazodone 50 mg PO HS. (4) CAD (coronary artery disease): Status: Chronic Assessment and plan: S/p AZ/2 stents in 2002. While EKG is being obtained priop, Virtually no finding on this EKG should keep the patient from having this surgery palliatively. (5) DVT prophylaxis: Status: Acute Assessment and plan: Holding off on chemical DVT ppx at this time. I ordered TEDs and SCDs with low threshold to D/C all of the above as this patient is essentially on comfort measures. (6) Discharge planning issues: Status: Acute Assessment and plan: DNR/DNI. Comfort measures only - which would include having this palliative hip surgery. History of Present Illness History of Present Illness Chief Complaint: L hip fracture; patient's family desires surgery Narrative: Mr Saleh is an 79 year old male with PMHx of advanced dementia (mixed vascular and Alzheimer's), for which he was on hospice, as well as ambulatory dysfunction with frequent falls, who fell at home on 11/27/2019 after tripping, fracturing his left hip. The patient was initially admitted to [facility] under the hospice service as the family initially was not interested in a surgical intervention. Since then, the and daughter have discussed the case multiple times with Dr Bowen and now with Dr Olivarez, after which they are agreeable to having the patient have a palliative surgery to fix his hip. Therefore, the patient is being discharge from inpatient hospice and his care is being transitioned over to the hospitalist team. His other medical conditions include CAD s/p AZ in 2002 s/p 2 stents to RCA, HTN, hyperlipidemia, hypothyroidism, ZACHARY (previously on CPAP), spinal stenosis. I am not able to find confirmation of this in his records, but he used to be on anticoagulation and is on diltiazem, suggesting a history of Afib. Patient is asleep, arousable, not answering my questions. Review of Systems All systems reviewed & are unremarkable except as noted in HPI and below PFSH Medical History Aggressive behavior due to dementia no longer aggressive, per Alzheimers disease At risk for unsafe behavior Benign essential hypertension Benign prostatic hyperplasia Benign prostatic hyperplasia with urinary frequency CAD (coronary artery disease) Chest pain ETT negative at 10 mets Roldan-Morse respiration Cholelithiasis NOS Chronic ischemic heart disease IWMI 06/15, stenting RCA with 2 stents; EF 45% multiple WMA; Mild MR; Mild TR 06/21/02- 3 vessel disease; Prox and mid LAD, Prox LCX, RCA 10/16/02- Dobut stress echo; No ischemia 130 bpm/84% max pred 10/1606/11/06- Stress Test 01/18; EF 45-50% 03/14/18- 02/21 clinic visit w/ local steel erector/jung Cognitive disorder Colonic polyp CPAP (continuous positive airway pressure) dependence still wears it regularly Disturbance of consciousness Dizziness and giddiness DNI (do not intubate) DNR (do not resuscitate) Elevated PSA Bx fibroglandular hyperplasia Encounter for hospice care discussion Family history of identical twins his twin 2012 from Alz Dz Fatty liver Frequent falls Goals of care, counseling/discussion Hemorrhoids Hoarding behavior family trying to get rid of excess he perseverates on his tools [place] (hard of hearing) will not wear his hearing aids hides them Hospice care patient Hyperlipidemia Hypertriglyceridemia Impotence Insomnia Knee pain Mixed Alzheimer's and vascular dementia advanced, severe Nephrolithiasis Osteoarthritis Pain due to fracture Palliative care patient POLST (Physician Orders for Life-Sustaining Treatment) DNR/DNI 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 What is your relationship status?: How often do you talk on the phone with friends or family?: never How often do you get together with friends or relatives?: twice per week Panel score (0-1 are the most socially isolated patients): 1 What type of physical activity do you participate in: walking and assisted ambulation Duration: 15-30 minutes/day Frequency: daily Special jamaal needs: No Seatbelt use: always Working smoke detector in home: Yes Fire extinguisher in home: Yes Do you feel safe at home: Yes Do you feel safe in your relationship?: Yes Additional Social history: Sally and [id number] Kiesha are his primary caregivers. Daughter lives in [place], but comes and helps when she can on weekends. Estranged from only son in [place]. He has 2 children, also out of touch. Wandering at night. exhausted. Continues to decline dramatically in 2020. Qualifies for hospice; not quite ready for this. Consult ordered Derick hides his hearing aids, refuses to wear them and his glasses. Does wear his CPAP at night though. Hasn't fallen recently. Very unsteady gait, very difficult to get out of his chair. Meds Home Medications and Allergies Home Medications Medication Instructions Recorded Confirmed Type carbamide peroxide 6.5 % ear drops 2 drp OT DAILY ml 06/26/19 11/27/19 History carboxymethylcellulose sodium 0.5 1 drp OP QID 06/26/19 11/27/19 History % eye drops cholecalciferol (vitamin D3) 25 25 mcg PO DAILY 06/26/19 11/27/19 History mcg (1,000 unit) capsule cyanocobalamin (vitamin B-12) 1,000 mcg PO DAILY 06/26/19 11/27/19 History 1,000 mcg tablet diltiazem HCl 180 mg capsule,24 180 mg PO DAILY 06/26/19 11/27/19 History hr,extended release donepezil 10 mg tablet 10 mg PO DAILY 06/26/19 11/27/19 History duloxetine 20 mg capsule,delayed 40 mg PO DAILY cap 06/26/19 11/27/19 History release finasteride 5 mg tablet 5 mg PO DAILY 06/26/19 11/27/19 History levothyroxine 50 mcg capsule 50 mcg PO DAILY 06/26/19 11/27/19 History lisinopril 5 mg tablet 5 mg PO DAILY 06/26/19 11/27/19 History melatonin 3 mg capsule 6 mg PO HS cap 06/26/19 11/27/19 History rosuvastatin 40 mg tablet 20 mg PO DAILY 06/26/19 11/27/19 History trazodone 50 mg tablet 50 mg PO QHS 06/26/19 11/27/19 History vitamin E 400 unit capsule 400 unit PO DAILY 06/26/19 11/27/19 History risperidone 0.5 mg tablet 0.5 mg PO TID tab 08/08/19 11/27/19 History Allergies Allergy/AdvReac Type Severity Reaction Status Date / Time Iodinated Contrast Media AdvReac Unknown Swelling/Ed Unverified 11/27/19 20:57 jaime Exam Narrative Exam Narrative: General: elderly male, seems to be sleeping comfortably in bed, does arouse to voice, but falls promptly back asleep; does not answer my questions Neurological: no obvious focal deficits Psychiatric: unable to evaluate - patient asleep Skin: Visible skin intact HEENT: Atraumatic, normocephalic, eyes closed, MMM, no lymphadenopathy, goiter or JVD Cardiovascular: RRR, no m/r/g Lungs: shallow frequent breaths, CTAB Gastrointestinal: soft, nondistended Genitourinary: has a zepeda Extremities: LLE is shortened and externally rotated, no edema. Results Imaging Additional studies: CXR, EKG pending Labs Result diagrams: 11/29/19 15:29 11/29/19 15:28 COVID-19 Screening Have you,or household,traveled outside [place] in last 14 days?: No
--- NOTE | 2019-11-29 15:41 | DI.RAD_ITS ---
EXAM: XR PORTABLE CHEST AP CLINICAL HISTORY: preop testing TECHNIQUE: 2D digital imaging was performed. COMPARISON: No exams were available for comparison FINDINGS: LUNGS: Clear. No pleural abnormality seen. HEART: Mildly enlarged. MEDIASTINUM: Mildly tortuous aorta with mild calcification. OTHER FINDINGS: None. IMPRESSION: No acute pulmonary findings. DATA REPOSITORY: RADIATION DOSE DELIVERED:
[2019-11-29 16:53] LABS: Abs Immature Grans 0.04 10^3/uL (0.0-0.06); Absolute Basophil Count 0.04 10^3/uL (0.0-0.2); Absolute Eosinophil Count 0.11 10^3/uL (0.0-0.7); Absolute Lymphocyte Count 0.57 10^3/uL (1.2-3.4); Absolute Monocyte Count 0.77 10^3/uL (0.1-0.8); Absolute Neutrophil Count 6.61 10^3/uL (1.2-6.7); Basophils % 0.5; Eosinophils % 1.4; HCT 30.8 % (40.0-50.0); HGB 10.3 g/dL (13.5-17.5); Immature Grans % 0.5; MCH 30.4 pg (27.0-33.0); MCHC 33.4 % (32.0-36.0); MCV 90.9 fL (80-95); MPV 10.2 fL (8.0-11.0); Monocytes % 9.5; Neutrophils % 81.1; Nucleated RBC 0 %; Platelet Count 133 10^3/uL (130-400); RBC 3.39 10^6/uL (4.36-5.78); RDW 15.1 % (11.8-14.1); RDW-SD 50.2 fL; WBC 8.14 10^3/uL (4.4-10.8)
[2019-11-29 17:24] LABS: Anion Gap 1.1 mmol/L (3-11); BUN 26 mg/dL (7-18); CO2 26.9 mmol/L (21.0-32.0); CREATININE 0.82 mg/dL (0.70-1.30); Calcium 8.1 mg/dL (8.5-10.1); Chloride 108 mmol/L (98-107); Glucose 101 mg/dL (74-106); Potassium 4.3 mmol/L (3.5-5.1); Sodium 136 mmol/L (136-145)
[2019-11-29 17:49] LABS: Bilirubin Negative (Negative); Blood Moderate (Negative); Clarity Sl Cloudy (Clear); Glucose Negative (Negative); Ketones Negative (Negative); Leukocyte Esterase Trace (Negative); Nitrite Negative (Negative); Specific Gravity >= 1.030 (1.005-1.025); Urobilinogen 0.2 EU/dL (Up TO 0.2); pH 5.5 (5-8)
[2019-11-29 18:04] LABS: Bacteria Rare HPF (Negative); C & S Indicated? Yes; Crystals Few Uric Acid HPF (Negative); Epithelial Cells Few HPF (Negative); Mucus Trace (Negative); RBC >50 HPF (0-2); WBC 20-50 HPF (0-5)
[2019-11-29] MEDS: Normal Saline Flush 10 ML SYR IVP (19:29)
[2019-11-29] MEDS: risperiDONE 0.5 MG TAB PO (19:29)
--- NOTE | 2019-11-29 19:30 | OCONE_ITS ---
Date of service: 11/29/19 Time of Service: 12:47 History of Present Illness History of Present Illness Chief Complaint: Left Hip Fracture Narrative: Derick is an 79-year-old who has severe dementia and is on hospice care. He also has frequent falls and fell on November 26. He was brought into the emergency department and diagnosed with a displaced intertrochanteric fracture of his left hip. Since he was on hospice initial thoughts from the family were to continue with hospice care in the hospital. However, he is required no amounts of pain medications to stay comfortable and while on these medications is not being himself, per the . After discussions with Dr. Ackerman, the family was more interested in surgical fixation for pain control and palliative purposes. Therefore, I was consulted for possible surgical management of his left hip fracture. Derick is unable to participate with any of the interview process. Per the , he falls frequently as he is somewhat impulsive and getting up and moving around. He has had 3 falls in the last few weeks. This last time he landed directly on his left side. Per his he has severe dementia. This has progressed rapidly in the last year, especially in the last few months. Usually at home, he is able to interact with his . She helps him move around the home. 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 This was deemed not to be a surgical candidate for this fixation procedure. Per her report he has been on anticoagulation in the past but currently is not. Since being treated on hospice care in the hospital he has required a good bit of pain medication which is left him relatively unresponsive laying in the bed. She expresses great concern about him passing away in this state. She expresses great concern about the level of medications and disappointments that her mom's last days were spent in a similar state on pain medications. Consult Reason Left intertrochanteric hip fracture Assessment and Plan Assessment and plan (1) Fracture, intertrochanteric, left femur: Status: Acute Assessment and plan: Derick is an 79-year-old with severe dementia, likely end-stage, who has been on hospice care. He has fallen multiple times but unfortunately had a displaced intertrochanteric fracture of his left hip from the fall on November 26. Initial plans were to pursue hospice management with pain control. However, he has required significant amount of medications and has been quite somnolent due to these medications. His is quite concerned about this mental state and expresses very clear desires to avoid this state of significant medications. She relays a story of her mom passing away in a similar state and this concerns her. I was very honest with her that I cannot make any guarantees about prognosis of surgery. However, the primary reason to do the surgery would be to treat pain. By fixating the fracture, the fracture would not move and therefore he should have less pain, most notable with attempting any transfers or repositioning for skin care and hygiene and daily function. After speaking to her I also called her and her daughter discussed this in more detail over the phone due to COVID-19 concerns, not at the hospital. Through these conversations the decision was to proceed with intramedullary nail fixation of the left proximal femur. I reviewed the risk of the procedure to include bleeding, infection, pain, stiffness, cardiopulmonary demise, worsening mental function, blood clot. My expectation is that by fixing the fracture we can decrease the amount of pain medications he is requiring and allow him to sit up and may be mentate in a slightly more normal fashion. However, it is unknown how his brain handles the surgery and there is also the possibility that the surgery itself and the stress associated with it pushes him into a worse state mentally or physically. Both Sally and her daughter and desired to proceed although with hesitations, which I expressed is quite normal. There is no right answer in the situation. I supplied him with my cell phone number that any concerns this evening, overnight, or in the morning. However, at this point we will proceed with intramedullary fixation of the left hip fr acture first thing the morning. He will be n.p.o. after midnight. I will obtain labs prior to surgery simply for safety planning so we can make the surgical procedure as safe as possible. The plan will be for a spinal anesthetic. Qualifiers: Encounter type: initial encounter Fracture type: closed Fracture alignment: displaced Qualified Code(s): S72.142A - Displaced intertrochanteric fracture of left femur, initial encounter for closed fracture Review of Systems All systems reviewed & are unremarkable except as noted in HPI and below PFSH Medical History Aggressive behavior due to dementia no longer aggressive, per Alzheimers disease At risk for unsafe behavior Benign essential hypertension Benign prostatic hyperplasia Benign prostatic hyperplasia with urinary frequency CAD (coronary artery disease) Chest pain ETT 4/00 negative at 10 mets Roldan-Morse respiration Cholelithiasis NOS Chronic ischemic heart disease IWMI 06/15, stenting RCA with 2 stents; EF 45% multiple WMA; Mild MR; Mild TR 06/21/02- 3 vessel disease; Prox and mid LAD, Prox LCX, RCA 10/16/02- Dobut stress echo; No ischemia 130 bpm/84% max pred 10/1606/11/06- Stress Test 01/18; EF 45-50% 03/14/18- 02/21 clinic visit w/ local school admissions representative/jung Cognitive disorder Colonic polyp CPAP (continuous positive airway pressure) dependence still wears it regularly Disturbance of consciousness Dizziness and giddiness DNI (do not intubate) DNR (do not resuscitate) Elevated PSA Bx fibroglandular hyperplasia Encounter for hospice care discussion Family history of identical twins his twin 2012 from Alz Dz Fatty liver Frequent falls Goals of care, counseling/discussion Hemorrhoids Hoarding behavior family trying to get rid of excess he perseverates on his tools [place] (hard of hearing) will not wear his hearing aids hides them Hospice care patient Hyperlipidemia Hypertriglyceridemia Impotence Insomnia Knee pain Mixed Alzheimer's and vascular dementia advanced, severe Nephrolithiasis Osteoarthritis Pain due to fracture Palliative care patient POLST (Physician Orders for Life-Sustaining Treatment) DNR/DNI 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 Do you need help understanding health information?: Always current occupation: retired from [employer] What is your relationship status?: How often do you talk on the phone with friends or family?: never How often do you get together with friends or relatives?: twice per week Panel score (0-1 are the most socially isolated patients): 1 What type of physical activity do you participate in: walking and assisted ambulation Duration: 15-30 minutes/day Frequency: daily Special jamaal needs: No Seatbelt use: always Working smoke detector in home: Yes Fire extinguisher in home: Yes Do you feel safe at home: Yes Do you feel safe in your relationship?: Yes Additional Social history: Sally and [id number] Kiesha are his primary caregivers. Daughter lives in [place], but comes and helps when she can on weekends. Estranged from only son in [place]. He has 2 children, also out of touch. Wandering at night. exhausted. Continues to decline dramatically in 2020. Qualifies for hospice; not quite ready for this. Consult ordered Derick hides his hearing aids, refuses to wear them and his glasses. Does wear his CPAP at night though. Hasn't fallen recently. Very unsteady gait, very difficult to get out of his chair. Exam Narrative Exam Narrative: Laying in the hospital bed, towards the right side. He is quite somnolent. He is unable to participate in the exam. His left hip is slightly s hortened and externally rotated. There are no overlying skin changes. Results X-ray of the left hip demonstrates a displaced intertrochanteric hip fracture with some shortening and varus displacement. No other suspicious lesions but some osteopenia. Labs Result diagrams: 11/29/19 16:30 11/29/19 16:30 Labs: Laboratory Results - last 24 hr 11/29/19 11/29/19 11/29/19 16:30 16:30 16:30 WBC 8.14 RBC 3.39 L Hgb 10.3 L Hct 30.8 L MCV 90.9 MCH 30.4 MCHC 33.4 RDW 15.1 H Plt Count 133 MPV 10.2 Immature Gran % 0.5 Neutrophils % 81.1 Lymphocytes % 7.0 Monocytes % 9.5 Eosinophils % 1.4 Basophils % 0.5 Nucleated RBC % 0 Absolute Neutrophils 6.61 Absolute Lymphocytes 0.57 L Absolute Monocytes 0.77 Absolute Eosinophils 0.11 Absolute Basophils 0.04 Sodium 136 Potassium 4.3 Chloride 108 H Carbon Dioxide 26.9 Anion Gap 1.1 L BUN 26 H Creatinine 0.82 Estimated GFR/1.73 m2 >= 60.00 Glucose 101 Calcium 8.1 L Magnesium 2.0 Urine Color Urine Clarity Urine pH Ur Specific [place] Urine Protein Urine Ketones Urine Blood Urine Nitrite Urine Bilirubin Urine Urobilinogen Ur Leukocyte Esterase Urine RBC Urine WBC Ur Epithelial Cells Urine Crystals Urine Bacteria Urine Mucus Ur Culture Indicated? Urine Glucose 11/29/19 17:36 WBC RBC Hgb Hct MCV MCH MCHC RDW Plt Count MPV Immature Gran % Neutrophils % Lymphocytes % Monocytes % Eosinophils % Basophils % Nucleated RBC % Absolute Neutrophils Absolute Lymphocytes Absolute Monocytes Absolute Eosinophils Absolute Basophils Sodium Potassium Chloride Carbon Dioxide Anion Gap BUN Creatinine Estimated GFR/1.73 m2 Glucose Calcium Magnesium Urine Color Yellow Urine Clarity Sl cloudy Urine pH 5.5 Ur Specific [place] >= 1.030 H Urine Protein Negative Urine Ketones Negative Urine Blood Moderate H Urine Nitrite Negative Urine Bilirubin Negative Urine Urobilinogen 0.2 Ur Leukocyte Esterase Trace H Urine RBC >50 H Urine WBC 20-50 H Ur Epithelial Cells Few Urine Crystals Few uric acid Urine Bacteria Rare Urine Mucus Trace Ur Culture Indicated? Yes Urine Glucose Negative
[2019-11-29] MEDS: Melatonin 3 MG TAB 6 MG PO (21:35)
[2019-11-29] MEDS: Donepezil 5 MG TAB 10 MG PO (21:35)
[2019-11-29] MEDS: traZODone 50 MG TAB PO (21:36)
[2019-11-29] MEDS: Senna TAB PO (21:36)
[2019-11-29 22:35] VITALS: BP 145/70; PULSE 85; RESP 18; TEMP 37.8; O2SAT 95
[2019-11-29 22:48] VITALS: TEMP 37.8
[2019-11-29] MEDS: ACETAMINOPHEN 1,000 MG/100 ML BTL 400 MG IVPB (22:48)
[2019-11-30] VITALS (12 sets, daily range): BP systolic 92–153; BP diastolic 42–71; PULSE 48–101; RESP 9–19; TEMP 36–37.2; O2SAT 92–99
[2019-11-30] MEDS: ceFAZolin 2 GM/50 ML BAG IVPB (07:21)
[2019-11-30 07:28] LABS: HCT 33.1 % (40.0-50.0); HGB 10.5 g/dL (13.5-17.5); MCH 29.2 pg (27.0-33.0); MCHC 31.7 % (32.0-36.0); MCV 92.2 fL (80-95); MPV 9.7 fL (8.0-11.0); Platelet Count 128 10^3/uL (130-400); RBC 3.59 10^6/uL (4.36-5.78); RDW 15.3 % (11.8-14.1); RDW-SD 52.2 fL; WBC 8.07 10^3/uL (4.4-10.8)
[2019-11-30 07:35] LABS: INR 1.2 (0.9-1.1); Prothrombin Time 12.2 sec (9.3-11.0)
[2019-11-30 07:39] LABS: Anion Gap 5.2 mmol/L (3-11); BUN 27 mg/dL (7-18); CO2 29.8 mmol/L (21.0-32.0); CREATININE 1.09 mg/dL (0.70-1.30); Calcium 8.4 mg/dL (8.5-10.1); Chloride 105 mmol/L (98-107); Glucose 92 mg/dL (74-106); Magnesium 2.1 mg/dL (1.8-2.4); Potassium 4.2 mmol/L (3.5-5.1); Sodium 140 mmol/L (136-145)
[2019-11-30] MEDS: Lactated Ringers 1,000 ML 30 ML IV (08:03)
--- NOTE | 2019-11-30 08:04 | PGE_ITS ---
Date of Service Date of service: 11/30/19 Time of Service: 07:51 Assessment and Plan Assessment and plan (1) Fracture, intertrochanteric, left femur: Status: Acute Assessment and plan: Derick is 79-year-old who has a displaced intertrochanteric fracture of his left hip. Once again discussed the case with his , caregiver, and daughter. Everyone is on page to proceed with surgery of the left hip. Derick is alert this morning and was able to interact with family for a while. All questions about the surgery and anesthetic were discussed. The risks were once again reviewed which included bleeding, infection, pain, stiffness, damage nerves vessels, damage to muscle tendons, 9, 9, failure, blood clot, cardiopulmonary demise. Despite these risk, Derick's spouse, Sally, agrees to proceed. Qualifiers: Encounter type: initial encounter Fracture type: closed Fracture alignment: displaced Qualified Code(s): S72.142A - Displaced intertrochanteric fracture of left femur, initial encounter for closed fracture Subjective Subjective Interval history since last seen: Remains demented but seem to have good night last night. He is currently on fentanyl patch. Labs are performed without any significant values. He was moved to the hospital service without any identification of any comorbidity to stop proceeding with surgery. Objective Last Vital Signs Temp 36.6 C 11/30/19 07:25 Pulse 65 11/30/19 07:25 Resp 19 11/30/19 07:25 BP 125/55 L 11/30/19 07:25 Pulse Ox 98 11/30/19 07:25 Laboratory Results - last 24 hr 11/29/19 11/29/19 11/29/19 16:30 16:30 16:30 WBC 8.14 RBC 3.39 L Hgb 10.3 L Hct 30.8 L MCV 90.9 MCH 30.4 MCHC 33.4 RDW 15.1 H Plt Count 133 MPV 10.2 Immature Gran % 0.5 Neutrophils % 81.1 Lymphocytes % 7.0 Monocytes % 9.5 Eosinophils % 1.4 Basophils % 0.5 Nucleated RBC % 0 Absolute Neutrophils 6.61 Absolute Lymphocytes 0.57 L Absolute Monocytes 0.77 Absolute Eosinophils 0.11 Absolute Basophils 0.04 PT INR Sodium 136 Potassium 4.3 Chloride 108 H Carbon Dioxide 26.9 Anion Gap 1.1 L BUN 26 H Creatinine 0.82 Estimated GFR/1.73 m2 >= 60.00 Glucose 101 Calcium 8.1 L Magnesium 2.0 Urine Color Urine Clarity Urine pH Ur Specific [place] Urine Protein Urine Ketones Urine Blood Urine Nitrite Urine Bilirubin Urine Urobilinogen Ur Leukocyte Esterase Urine RBC Urine WBC Ur Epithelial Cells Urine Crystals Urine Bacteria Urine Mucus Ur Culture Indicated? Urine Glucose 11/29/19 11/30/19 11/30/19 17:36 07:10 07:10 WBC RBC Hgb Hct MCV MCH MCHC RDW Plt Count MPV Immature Gran % Neutrophils % Lymphocytes % Monocytes % Eosinophils % Basophils % Nucleated RBC % Absolute Neutrophils Absolute Lymphocytes Absolute Monocytes Absolute Eosinophils Absolute Basophils PT 12.2 H INR 1.2 H Sodium 140 Potassium 4.2 Chloride 105 Carbon Dioxide 29.8 Anion Gap 5.2 BUN 27 H Creatinine 1.09 Estimated GFR/1.73 m2 >= 60.00 Glucose 92 Calcium 8.4 L Magnesium 2.1 Urine Color Yellow Urine Clarity Sl cloudy Urine pH 5.5 Ur Specific [place] >= 1.030 H Urine Protein Negative Urine Ketones Negative Urine Blood Moderate H Urine Nitrite Negative Urine Bilirubin Negative Urine Urobilinogen 0.2 Ur Leukocyte Esterase Trace H Urine RBC >50 H Urine WBC 20-50 H Ur Epithelial Cells Few Urine Crystals Few uric acid Urine Bacteria Rare Urine Mucus Trace Ur Culture Indicated? Yes Urine Glucose Negative 11/30/19 07:10 WBC 8.07 RBC 3.59 L Hgb 10.5 L Hct 33.1 L MCV 92.2 MCH 29.2 MCHC 31.7 L RDW 15.3 H Plt Count 128 L MPV 9.7 Immature Gran % Neutrophils % Lymphocytes % Monocytes % Eosinophils % Basophils % Nucleated RBC % Absolute Neutrophils Absolute Lymphocytes Absolute Monocytes Absolute Eosinophils Absolute Basophils PT INR Sodium Potassium Chloride Carbon Dioxide Anion Gap BUN Creatinine Estimated GFR/1.73 m2 Glucose Calcium Magnesium Urine Color Urine Clarity Urine pH Ur Specific [place] Urine Protein Urine Ketones Urine Blood Urine Nitrite Urine Bilirubin Urine Urobilinogen Ur Leukocyte Esterase Urine RBC Urine WBC Ur Epithelial Cells Urine Crystals Urine Bacteria Urine Mucus Ur Culture Indicated? Urine Glucose
--- NOTE | 2019-11-30 09:05 | DI.RAD_ITS ---
EXAM: XR HIP LT IN OR CLINICAL HISTORY: left hip fracture. TECHNIQUE: 2D and realtime digital imaging was performed. COMPARISON: CR,XR XR HIP LT COMPLETE AP PELVIS from 11/27/2019 FINDINGS: Fluoroscopy was provided in the OR for Dr. Olivarez. Hard copy images show placement of hardware in the proximal left femur for fracture fixation. The alignment appears anatomic FLUORO TIME: 77.4 seconds Please see procedure note for details. RADIATION DOSE DELIVERED:
[2019-11-30] MEDS: Ketorolac 30 MG/ML VIAL (09:10)
[2019-11-30] MEDS: Bupivacaine 0.25% Pres-Free 30 ML VIAL (09:10)
--- NOTE | 2019-11-30 09:41 | ROE_ITS ---
Date of service: 11/30/19 Time of Service: 09:41 Operative Note Operative Note DATE OF PROCEDURE: 11/30/19 PRE-OP DIAGNOSIS: Left Intertrochanteric Femur Fracture POST-OP DIAGNOSIS: same PROCEDURE: Left Intramedullary Fixation of Proximal Femur Fracture SURGEON: Jeffery Olivarez ANESTHESIA: spinal ESTIMATED BLOOD LOSS: 50 PATHOLOGY: none sent COMPLICATIONS: None Patient was transported to: PACU Patient's condition: stable Implants: Dep[employer]ynthe[employer] TFNA 11mm x 170mm, 105mm Helical Blade Indications: Derick is a 79-year-old male who presented to the Emergency Department after a fall. X-rays confirmed the diagnosis of a displaced intertrochanteric fracture of the proximal femur. I reviewed the possible treatment options and given the fracture of the femur, I recommened operative fixation. He is on hospice care but given the pain he had from the fracture, hospice care was rescinded. I discussed the technical details of the surgery. I reviewed the risks such as bleeding, infection, pain, stiffness, malunion, nonunion, hardware prominence, hardware faiilure, malrotation, avascular necrosis, blood clot. Despite these risks, he agreed to proceed. Findings: There was a fracture of the proximal femur which was able to be reduced with traction and internal rotation and external manipulation. Procedure Description: Irene was greeted in the preoperative area. Consent was previously reviewed and signed with his , Sally. Once in the operating room, spinal anesthesia was administered. Both feet were wrapped with cast padding and secured with Coban and then placed into the boots for the Catharpin table. The patient was transferred to the [place] table in the supine position. He was positioned onto the perineal post. All bony prominences were well padded. The arm of the operative side was then placed across the chest and secured. The nonoperative leg was scissored. A gentle reduction was then performed with traction and internal rotation and gentle external manipulation. Prophylactic antibiotics, cefazolin 2 grams, was given for prophylactic antibiotics. A timeout was performed for safe surgery. The left leg was prepped with Chloraprep. A shower curtain drape was placed. Using fluoroscopy, the starting point was marked over the lateral hip, proximal to the tip of the greater trochanter. A 3cm incision was made through skin and the fascia of the gluteus musculature until the tip of the trochanter was palpable. The starting wire was placed onto the tip, just slightly on the media aspect, and centered in the AP plane. Using a destiney, the starting guide wire was buried into the bone. A lateral x-ray confirmed appropriate position and the guidewire was advanced to the level of the lesser trochanter. With a tissue protector, the proximal femur was opened with the opening reamer. The short TFNA was chosen for this case and a Synthes TFNA [id number] nail was selected and opened on the back table. The nail was assembled to the aiming arm on the back table and confirmed to be aligned with the triple sleeve for blade insertion. Using manual force the nail was advanced into the femur. A few light mallet blows advanced the nail to its appropriate position. The triple sleeve was inserted through the targeting arm and the skin, soft tissue, and IT band was then incised. The triple sleeve was advanced down to the lateral femur. A guidewire was advanced into the femoral head where it was noted to be centered. A lateral x-ray was used to confirm centered positioning on the lateral. Happy with the length of the guidewire, this was measured. A 105mm helical blade was opened. The lateral cortex was opened and the path of the blade was reamed with a tapered reamer to appropriate depth. The helical blade was malletted into position and confirmed to be appropriately located on fluoroscopy. The set screw was advanced to a half turn shy of fully tightened, allowing for the helical blade to slide. The fracture was compressed before removing the targeting device. The targeting device was removed. AP and lateral x-rays of the hip confirmed appropriate positioning within the femur and with good alignment of the fracture. Using the targeting arm, the skin was incised for placement of the distal locking screw. The trochar was inserted through the skin and IT band down onto the lateral cortex of the femur. The 4.2mm drill was advanced across the femur and through the nail. This was measured and an appropriately sized 5.0mm screw was placed. The targeting arm was removed. Final x-rays were obtained. The wounds were thoroughly irrigated. A cocktail consisting of 50cc of 0.5% bupivacaine, 30mg Ketorolac, and 20cc of Exparel was injected throughout the wounds both deep and superficially. The deep fascia of the proximal two wounds was reapproximated with a 0 Vicryl. The deep tisses were closed with a 2-0 Vicryl and the skin was closed with a running subcuticular Monocryl. The wounds were dressed with a Mepilex silver dressing. At the end of the case, all counts were correct. Derick tolerated the procedure well without known complication and was taken to the PACU for recovery. Physical therapy will start post-operatively, weigh-bearing as tolerated with assistive devices. 3 doses of post-operative antibitiocis for prophylaxis will be administered.
--- NOTE | 2019-11-30 11:00 | W.PM.PROGNOT ---
Date of Service Date of service: 11/30/19 Time of Service: 11:00 Assessment and Plan Assessment and plan (1) Fracture, intertrochanteric, left femur: Start date: 11/30/19 Start time: 11:09 Status: Acute Assessment and plan: Returned from surgery this am. Pain controlled Will resume regular diet. Plan for home with hospice on Monday Qualifiers: Encounter type: initial encounter Fracture type: closed Fracture alignment: displaced Qualified Code(s): S72.142A - Displaced intertrochanteric fracture of left femur, initial encounter for closed fracture (2) Pain due to fracture: Start date: 11/30/19 Start time: 11:12 Status: Acute Assessment and plan: Morphine and Fentanyl patch seem adequate for pain control (3) Mixed Alzheimer's and vascular dementia: Start date: 11/30/19 Start time: 11:12 Status: Chronic Assessment and plan: Will monitor behaviors post-operatively. For now, continue risperidone 0.5 mg PO TID, trazodone 50 mg PO HS. (4) CAD (coronary artery disease): Start date: 11/30/19 Start time: 11:12 Status: Chronic Assessment and plan: S/p HI/2 stents in 2002. While EKG is being obtained priop, Virtually no finding on this EKG should keep the patient from having this surgery palliatively. (5) DVT prophylaxis: Start date: 11/30/19 Start time: 11:12 Status: Acute Assessment and plan: TEDs and SCDs ordered with low threshold to D/C all of the above as this patient is essentially on comfort measures. (6) Discharge planning issues: Start date: 11/30/19 Start time: 11:13 Status: Acute Assessment and plan: DNR/DNI. Comfort measures only - which would include having this palliative hip surgery. Home with hospice Monday Above case discussed with who is in agreement. Subjective Subjective Patient reports: other Interval history since last seen: Return from surgery. No apparent pain. Will resume regular diet. Home with hospice on Monday Exam Narrative Exam Narrative: General: elderly male, seems to be sleeping comfortably in bed, just came back from surgery, Neurological: no obvious focal deficits Psychiatric: unable to evaluate - patient asleep Skin: Visible skin intact, incision to left hip, c/d/i HEENT: Atraumatic, normocephalic, eyes closed, MMM, no lymphadenopathy, goiter or JVD Cardiovascular: RRR, no m/r/g Lungs: shallow frequent breaths, CTAB Gastrointestinal: soft, nondistended Genitourinary: has a zepeda Objective Last Vital Signs Temp 36 C L 11/30/19 10:16 Pulse 54 L 11/30/19 10:16 Resp 12 11/30/19 10:16 BP 153/71 H 11/30/19 10:16 Pulse Ox 92 11/30/19 10:16 Laboratory Results - last 24 hr 11/29/19 11/29/19 11/29/19 16:30 16:30 16:30 WBC 8.14 RBC 3.39 L Hgb 10.3 L Hct 30.8 L MCV 90.9 MCH 30.4 MCHC 33.4 RDW 15.1 H Plt Count 133 MPV 10.2 Immature Gran % 0.5 Neutrophils % 81.1 Lymphocytes % 7.0 Monocytes % 9.5 Eosinophils % 1.4 Basophils % 0.5 Nucleated RBC % 0 Absolute Neutrophils 6.61 Absolute Lymphocytes 0.57 L Absolute Monocytes 0.77 Absolute Eosinophils 0.11 Absolute Basophils 0.04 PT INR Sodium 136 Potassium 4.3 Chloride 108 H Carbon Dioxide 26.9 Anion Gap 1.1 L BUN 26 H Creatinine 0.82 Estimated GFR/1.73 m2 >= 60.00 Glucose 101 Calcium 8.1 L Magnesium 2.0 Urine Color Urine Clarity Urine pH Ur Specific [place] Urine Protein Urine Ketones Urine Blood Urine Nitrite Urine Bilirubin Urine Urobilinogen Ur Leukocyte Esterase Urine RBC Urine WBC Ur Epithelial Cells Urine Crystals Urine Bacteria Urine Mucus Ur Culture Indicated? Urine Glucose 11/29/19 11/30/19 11/30/19 17:36 07:10 07:10 WBC RBC Hgb Hct MCV MCH MCHC RDW Plt Count MPV Immature Gran % Neutrophils % Lymphocytes % Monocytes % Eosinophils % Basophils % Nucleated RBC % Absolute Neutrophils Absolute Lymphocytes Absolute Monocytes Absolute Eosinophils Absolute Basophils PT 12.2 H INR 1.2 H Sodium 140 Potassium 4.2 Chloride 105 Carbon Dioxide 29.8 Anion Gap 5.2 BUN 27 H Creatinine 1.09 Estimated GFR/1.73 m2 >= 60.00 Glucose 92 Calcium 8.4 L Magnesium 2.1 Urine Color Yellow Urine Clarity Sl cloudy Urine pH 5.5 Ur Specific [place] >= 1.030 H Urine Protein Negative Urine Ketones Negative Urine Blood Moderate H Urine Nitrite Negative Urine Bilirubin Negative Urine Urobilinogen 0.2 Ur Leukocyte Esterase Trace H Urine RBC >50 H Urine WBC 20-50 H Ur Epithelial Cells Few Urine Crystals Few uric acid Urine Bacteria Rare Urine Mucus Trace Ur Culture Indicated? Yes Urine Glucose Negative 11/30/19 07:10 WBC 8.07 RBC 3.59 L Hgb 10.5 L Hct 33.1 L MCV 92.2 MCH 29.2 MCHC 31.7 L RDW 15.3 H Plt Count 128 L MPV 9.7 Immature Gran % Neutrophils % Lymphocytes % Monocytes % Eosinophils % Basophils % Nucleated RBC % Absolute Neutrophils Absolute Lymphocytes Absolute Monocytes Absolute Eosinophils Absolute Basophils PT INR Sodium Potassium Chloride Carbon Dioxide Anion Gap BUN Creatinine Estimated GFR/1.73 m2 Glucose Calcium Magnesium Urine Color Urine Clarity Urine pH Ur Specific [place] Urine Protein Urine Ketones Urine Blood Urine Nitrite Urine Bilirubin Urine Urobilinogen Ur Leukocyte Esterase Urine RBC Urine WBC Ur Epithelial Cells Urine Crystals Urine Bacteria Urine Mucus Ur Culture Indicated? Urine Glucose
--- NOTE | 2019-11-30 11:23 | PDOC.CMPRO ---
Care Management Progress Note S/O: Dr. Olivarez brought Derick to the OR this morning and reports surgery went well. Derick continues to be monitored closely post surgically at this time. Family discussed resumption of VNA supports upon discharge and needed DME; CM notified VNA's, [facility]. CM continues to follow. A: 79 year old male admitted to Hospitalist service 09/29/19 for Left Hip Fx P: Derick will discharge to home on 12/02/19. Anticipate he will have an intake to return to Hospice care services and supports. Transport TBD by disposition and mobility. CM continues to follow.
[2019-11-30] MEDS: ACETAMINOPHEN 1,000 MG/100 ML BTL 400 MG IVPB ×2 (11:39→17:38)
[2019-11-30] MEDS: ceFAZolin 1 GM/50 ML BAG IVPB ×2 (11:40→19:56)
[2019-11-30] MEDS: risperiDONE 0.5 MG TAB PO ×2 (13:26→19:57)
[2019-11-30] MEDS: Ketorolac 15 MG/ML VIAL IVP ×2 (16:23→22:02)
[2019-11-30] MEDS: MORPHine 10 MG/ML VIAL IVP (16:51)
[2019-11-30] MEDS: Normal Saline Flush 10 ML SYR IVP (19:57)
[2019-11-30] MEDS: traZODone 50 MG TAB PO (21:42)
[2019-11-30] MEDS: Normal Saline 50 ML 200 ML IV (22:04)
[2019-12-01] MEDS: Lactated Ringers 1,000 ML 30 ML IV (01:35)
[2019-12-01] MEDS: ACETAMINOPHEN 1,000 MG/100 ML BTL 400 MG IVPB ×3 (01:37→17:17)
[2019-12-01] MEDS: ceFAZolin 1 GM/50 ML BAG IVPB (04:16)
[2019-12-01] MEDS: Levothyroxine 50 MCG TAB PO (06:29)
[2019-12-01] MEDS: Normal Saline Flush 10 ML SYR IVP ×3 (06:29→15:37)
[2019-12-01] MEDS: Ketorolac 15 MG/ML VIAL IVP ×3 (06:35→21:16)
[2019-12-01 07:55] VITALS: BP 129/76; PULSE 65; RESP 22; TEMP 36.7; O2SAT 95
--- NOTE | 2019-12-01 08:40 | PDOC.CMPRO ---
Care Management Progress Note S/O: Derick continues to be monitored closely post surgically at this time. He is lying in bed, sleeping and appearing comfortable at this time. Family discussed resumption of VNA supports upon discharge and needed DME; CM notified VNA's, Rosa [facility]. CM continues to follow. A: 79 year old male admitted to Hospitalist service 09/29/19 for Left Hip Fx P: Derick will discharge to home on 12/02/19. Anticipate he will have an intake to return to Hospice care services and supports, and a hospital bed. Transport TBD by disposition and mobility. CM continues to follow.
--- NOTE | 2019-12-01 08:47 | W.PM.PROGNOT ---
Date of Service Date of service: 12/01/19 Time of Service: 08:47 Assessment and Plan Assessment and plan (1) Fracture, intertrochanteric, left femur: Status: Acute Assessment and plan: Derick is a 79yo male s/p IMN fixation of a Left Intertrochanteric hip fracture on 11/30/19. There are no acute issue at this time. I do think an oral pain agent like Tramadol may be helpful and continue Acetaminophen and Toradol but consider converting those to oral as well if tolerated. He may WBAT with assistance although this shold start only with transfer to chair with PT. Mepilex dressings to stay in place. Anticoagulation per [facility] hospitalist team. Qualifiers: Encounter type: initial encounter Fracture type: closed Fracture alignment: displaced Qualified Code(s): S72.142A - Displaced intertrochanteric fracture of left femur, initial encounter for closed fracture Subjective Subjective Interval history since last seen: Overall, nursing reports that Derick has been comfortable. He has been able to rest through the night. No acute events or concerns. Vitals stable. Exam Narrative Exam Narrative: Soundly sleeping in the hospital bed. NAD. Left leg is appropriately positioned, similar to the right. Dressings are c/d/i. No significant swelling or ecchymosis of the left thigh. Palpable PT/DP. Objective Last Vital Signs Temp 36.7 C 12/01/19 07:55 Pulse 65 12/01/19 07:55 Resp 22 12/01/19 07:55 BP 129/76 12/01/19 07:55 Pulse Ox 95 12/01/19 07:55
[2019-12-01] MEDS: dilTIAZem CD 180 MG CAPCR PO (10:03)
--- NOTE | 2019-12-01 10:37 | PT.INIE ---
Date of service: 12/01/19 Time of Service: 09:30 PT Notes Visit Reasons: ACUTE COMMINUTED INTERTROCHANTERIC LEFT FEMORAL FR Inpatient Physical Therapy Evaluation Date: 12/01/19 Referring Doctor: Jeffery Olivarez MD PT Orders: PT CONSULT: Evaluate and Treat Precautions: WBAT on Left LE Patient Profile/Admitting Diagnosis: Orders received for this 79-year-old male with a history of advanced dementia. Patient has been on hospice and homebound recently. He has been having more more functional decline and greater instability with standing. He has fallen several times in the last 2 months the most recent was last week and ended up a fracture through the low lower extremity in the femur. Due to the severity of pain it was a low to proceed with a reduction of the fracture. Surgery was completed yesterday and was successful. Orders have been initiated for postop PT services mainly for early mobilization PMHX: Medical History Aggressive behavior due to dementia no longer aggressive, per Alzheimers disease At risk for unsafe behavior Benign essential hypertension Benign prostatic hyperplasia Benign prostatic hyperplasia with urinary frequency CAD (coronary artery disease) Chest pain ETT negative at 10 mets Roldan-Morse respiration Cholelithiasis NOS Chronic ischemic heart disease IWMI 06/15, stenting RCA with 2 stents; EF 45% multiple WMA; Mild MR; Mild TR 06/21/02- 3 vessel disease; Prox and mid LAD, Prox LCX, RCA 10/16/02- Dobut stress echo; No ischemia 130 bpm/84% max pred 10/1606/11/06- Stress Test 01/18; EF 45-50% 03/14/18- 02/21 clinic visit w/ local hoop machine operator/jung Cognitive disorder Colonic polyp CPAP (continuous positive airway pressure) dependence still wears it regularly Disturbance of consciousness Dizziness and giddiness DNI (do not intubate) DNR (do not resuscitate) Elevated PSA Bx fibroglandular hyperplasia Encounter for hospice care discussion Family history of identical twins his twin 2012 from [facility]z Dz Fatty liver Frequent falls Goals of care, counseling/discussion Hemorrhoids Hoarding behavior family trying to get rid of excess he perseverates on his tools [place] (hard of hearing) will not wear his hearing aids hides them Hospice care patient Hyperlipidemia Hypertriglyceridemia Impotence Insomnia Knee pain Mixed Alzheimer's and vascular dementia advanced, severe Nephrolithiasis Osteoarthritis Pain due to fracture Palliative care patient POLST (Physician Orders for Life-Sustaining Treatment) DNR/DNI 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 (08/08/19) Sensorineural hearing loss Shortness of breath Sleep apnea, unspecified Has C-pap machine Spinal stenosis, lumbar Squamous cell carcinoma in situ of skin Subjective tinnitus Tubular adenoma of colon Unintentional weight loss 50 lbs lost in 1 year Unsteady gait [employer]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 Social History/Home Situation: Patient lives at home in the care of his Equipment Owned/DME: Cane, and wheelchair Subjective: Patient speaks inconsistent with questioning Objective: Patient lying in bed with head of bed to 30 degrees, Chambers catheter in place, IV through the right upper extremity Mental Status: Patient is sleeping upon entering the room but is able to be aroused, he is not coherent to person place and time Pain: Patient does not recall any complaint of pain ROM: Right Upper Extremity: Within functional Left Upper Extremity: Functional limits Right Lower Extremity: 90 degrees of hip flexion, 90 degrees of knee flexion to 0 degrees of extension Left Lower Extremity: 90 degrees of hip flexion, 90 degrees knee flexion to 0 degrees of extension Strength: Right Upper Extremity: Difficult to assess due to patient noncompliance but patient at least to hold against gravity Left Upper Extremity: Difficult to assess due to patient noncompliance but patient at least to hold against gravity Right Lower Extremity: Difficult to assess due to patient noncompliance but patient at least to hold against gravity Left Lower Extremity: Difficult to assess due to patient noncompliance but patient at least to hold against gravity Patient was able to respond to 1 minimal command of extending his right knee which he was able to do to about 45 degrees repetitively Bed Mobility/Transfers: Max 2 for bed rolling Supine-sit: Max of 2 Sit-stand: Not attempted at this time Gait: Not attempted at this time Balance: Static Sitting: Poor Dynamic Sitting: Poor Special Tests: Mobility Limitations Standardized Measure [facility] AM-PAC 6 clicks Basic Mobility Inpatient Short Form: Raw Score: 6 standardized Score: 23.55 CMS Score: 100% Informed Consent/Education: Patient instructed in purpose of PT consult and plan of care. ASSESSMENT: Patient is a 79-year-old male with a history of advanced dementia Admitted with IM nailing through the left femur Patient presents with the following impairment level findings: Complete assistance needed for trans-max of 2, difficult to assess strength and inability to move lower limbs independently other than requests, ambulation tolerance, unable to follow commands Pt will benefit from skilled therapy intervention in order to remedy their functional limitations and restore patient to a more appropriate and stable functional level. Impairments are contributing to the following functional limitations: AMPAC score 100% Patient is assessed as a high complexity initial evaluation [id number] based on the following: History: see above Examination: see above Presentation: Unstable Decision Making: High due to AMPAC of 100% Goals: Goals X1 week 1. Supine-Sit Mod Assist x 1 2. Sit-Supine Mod Assist x 1 3. Sit-Stand Mod Assist x 1 4. Stand-Sit Mod Assist x 1 5. Bed-Chair Mod Assist x 1 with stand pivot transfer Plan of Care/Treatment Plan: 1-2x/day, 7 days/week x 1 week. Plan of care has been reviewed with the NETWORK PRICING CONSULTANT providing the service under Physical Therapy direction. Initiate Physical Therapy intervention for strengthening, bed mobility, transfers, gait, stairs, balance training, use of assistive device. DISCHARGE RECOMMENDATIONS: Inpatient SNF or significant home health services as Patient's is only caregiver and most likely unable to provide the type of assistance patient would require. TREATMENT CODE/TIME: 63531 High complexity initial evaluation, 930 am 30 min [facility]
--- NOTE | 2019-12-01 11:22 | W.PM.PROGNOT ---
Date of Service Date of service: 12/01/19 Time of Service: 11: Assessment and Plan Assessment and plan (1) Fracture, intertrochanteric, left femur: Start date: 12/01/19 Start time: 11:24 Status: Acute Assessment and plan: POD 1 for palliative repair. Appears comfortable. Family at bedside. Plan for home with hospice on Monday Qualifiers: Encounter type: initial encounter Fracture type: closed Fracture alignment: displaced Qualified Code(s): S72.142A - Displaced intertrochanteric fracture of left femur, initial encounter for closed fracture (2) Pain due to fracture: Start date: 12/01/19 Start time: 11:25 Status: Acute Assessment and plan: Morphine and Fentanyl patch seem adequate for pain control, (3) Mixed Alzheimer's and vascular dementia: Start date: 12/01/19 Start time: 11:25 Status: Chronic Assessment and plan: Will monitor behaviors post-operatively. For now, continue risperidone 0.5 mg PO TID, trazodone 50 mg PO HS. (4) CAD (coronary artery disease): Start date: 12/01/19 Start time: 11:25 Status: Chronic Assessment and plan: S/p CA/2 stents in 2002. While EKG is being obtained periop, Virtually no finding on this EKG should keep the patient from having this surgery palliatively. (5) DVT prophylaxis: Start date: 12/01/19 Start time: 11:25 Status: Acute Assessment and plan: TEDs and SCDs ordered with low threshold to D/C all of the above as this patient is essentially on comfort measures. (6) Discharge planning issues: Status: Acute Assessment and plan: DNR/DNI. Comfort measures only - which would include having this palliative hip surgery. Home with hospice Monday Above case discussed with who is in agreement. Subjective Subjective Patient reports: no new complaints Interval history since last seen: POD 1 appears comfortable. He has not required any doses of morphine, though family is hesitant to give, but he does appear comfortable. Low dose fentynal patch in place. Left hip drsg c/d/i. Family at bedside. home with hospice Monday Exam Narrative Exam Narrative: General: elderly male, seems to be sleeping comfortably in bed, just came back from surgery, Neurological: no obvious focal deficits Psychiatric: unable to evaluate - patient asleep Skin: Visible skin intact, incision to left hip, c/d/i HEENT: Atraumatic, normocephalic, eyes closed, MMM, no lymphadenopathy, goiter or JVD Cardiovascular: RRR, no m/r/g Lungs: shallow frequent breaths, CTAB Gastrointestinal: soft, nondistended Genitourinary: has a zepeda Objective Last Vital Signs Temp 36.7 C 12/01/19 07:55 Pulse 65 12/01/19 07:55 Resp 22 12/01/19 07:55 BP 129/76 12/01/19 07:55 Pulse Ox 95 12/01/19 07:55
[2019-12-01] MEDS: fentaNYL 12 MCG PATCH TD (11:44)
[2019-12-01 15:32] VITALS: BP 159/76; PULSE 78; RESP 23; TEMP 37; O2SAT 99
[2019-12-01] MEDS: MORPHine 10 MG/ML VIAL IVP ×2 (15:36→20:08)
[2019-12-01] MEDS: risperiDONE 0.5 MG TAB PO (20:08)
[2019-12-01] MEDS: Melatonin 3 MG TAB 6 MG PO (21:15)
[2019-12-01] MEDS: Donepezil 5 MG TAB 10 MG PO (21:15)
[2019-12-01] MEDS: Senna TAB PO (21:15)
[2019-12-01] MEDS: traZODone 50 MG TAB PO (21:25)
[2019-12-02 00:20] VITALS: BP 114/56; PULSE 72; RESP 17; TEMP 37.4; O2SAT 93
[2019-12-02] MEDS: ACETAMINOPHEN 1,000 MG/100 ML BTL 400 MG IVPB ×2 (01:53→10:10)
[2019-12-02] MEDS: Ketorolac 15 MG/ML VIAL IVP ×3 (05:55→21:52)
[2019-12-02] MEDS: Lactated Ringers 1,000 ML 30 ML IV (05:55)
--- NOTE | 2019-12-02 08:39 | PTTR_ITS ---
Date of service: 12/02/19 Time of Service: 08:40 PT Notes Visit Reasons: ACUTE COMMINUTED INTERTROCHANTERIC LEFT FEMORAL FR Inpatient Physical Therapy Treatment Note [facility] Date: 12/02/2019 PRECAUTIONS: Fall SUBJECTIVE: Derick is confused, but is agreeable to participating in PT. He says yeah and I want to sit in the chair when asked if he wants to sit in the chair. OBJECTIVE: Patient is observed making minor facial grimaces with transfers. PAIN: Patient does not verbalize pain complaint BED MOBILITY/TRANSFERS Supine-sit: Max A x2 Sit-supine: Max A x2 Sit-stand: Max A x2 Stand-sit: Max A x2 Bed-Chair: Max A x2 Chair-bed: Mod A x2 GAIT Assistive Device: FOUR HORSE HITCH DRIVER x2 in a.m.; FOUR HORSE HITCH DRIVER x1 in p.m. Weight bearing: WBAT L Assist: Max A x2 in a.m.; Mod A x2-Max A x2 in p.m. Distance: Bed-chair transfer in a.m.; Chair-commode transfer x3 steps + Commode to bed transfer x4 steps in p.m. Deviation: Cueing for decreased trunk flexion/postural correction, max cueing required for taking steps THEREX: Patient was instructed in LAQ and ankle pumps for LE strengthening, while seated at EOB in a.m.; and was instructed and assisted in heel slide and hip abduction exercises in a supine position in p.m.. He requires assist for exercise completion due to baseline-level confusion. Static sitting at EOB x5 minutes with Mod A-SBA in a.m.; static sitting on commode x5 minutes with SBA in p.m. ASSESSMENT: Patient was able to tolerate a [id number] transfer, although requires Max A x2 for all transfers, bed mobility, and gait. He would benefit from continued transfer, bed mobility, and gait training. PLAN: Continue with transfer, bed mobility, and caregiver training. TREATMENT CODE/TIME: Session 1: 35 minutes; 04759 x2 Session 2: 35 minutes; 64802 x3
[2019-12-02] MEDS: dilTIAZem CD 180 MG CAPCR PO (10:06)
[2019-12-02] MEDS: DULoxetine 20 MG CAP 40 MG PO (10:06)
[2019-12-02] MEDS: risperiDONE 0.5 MG TAB PO ×3 (10:07→19:47)
[2019-12-02] MEDS: Lisinopril 5 MG TAB PO (10:07)
[2019-12-02] MEDS: Finasteride 5 MG TAB PO (10:07)
--- NOTE | 2019-12-02 10:45 | PGE_ITS ---
Date of Service Date of service: 12/02/19 Time of Service: 10:45 Assessment and Plan Assessment and plan (1) Fracture, intertrochanteric, left femur: Start date: 12/02/19 Start time: 10:50 Status: Acute Assessment and plan: POD 2 for palliative repair. Appears comfortable. Family at bedside. OOB with PT sitting up in chair Plan for home with hospice on Monday Qualifiers: Encounter type: initial encounter Fracture type: closed Fracture alignment: displaced Qualified Code(s): S72.142A - Displaced intertrochanteric fracture of left femur, initial encounter for closed fracture (2) Pain due to fracture: Start date: 12/02/19 Start time: 10:50 Status: Acute Assessment and plan: Morphine and Fentanyl patch seem adequate for pain co ntrol, worse at night. Spoke with about giving dose in the evening to prevent pain that would be harder to control. She is agreeable. She just is afraid he will be too sleepy. (3) Mixed Alzheimer's and vascular dementia: Status: Chronic Assessment and plan: Will monitor behaviors post-operatively. For now, continue risperidone 0.5 mg PO TID, trazodone 50 mg PO HS. (4) CAD (coronary artery disease): Status: Chronic Assessment and plan: S/p NC/2 stents in 2002. While EKG is being obtained periop, Virtually no finding on this EKG should keep the patient from having this surgery palliatively. (5) DVT prophylaxis: Status: Acute Assessment and plan: TEDs and SCDs ordered with low threshold to D/C all of the above as this patient is essentially on comfort measures. (6) Discharge planning issues: Status: Acute Assessment and plan: DNR/DNI. Comfort measures only - which would include having this palliative hip surgery. Home with hospice Monday Above case discussed with who is in agreement. Subjective Subjective Patient reports: no new complaints Interval history since last seen: Patient opens eyes to name. Out bed to chair. Pain appears controlled this morning. concerned about caring for Derick at home. has asked hospice to see patient and to discuss plan on discharge and make sure all equipment needs are met. is concerned she wants patient to be able to get OOB and move around like he was prior to admission. is tearful and understands that he is deteriorating but having a hard time with thought of losing him. She would benefit from support as well. Tentative discharge home for tomorrow on hospice. Exam Narrative Exam Narrative: Opens eyes to name. Does not appear to be in pain. Left hip drsg c/d/i. Working with PT. Poor appetite, feeds him. Does not appear SOB, does not answer, smiles. Objective Last Vital Signs Temp 37.4 C 12/02/19 00:20 Pulse 72 12/02/19 00:20 Resp 17 12/02/19 00:20 BP 114/56 L 12/02/19 00:20 Pulse Ox 93 12/02/19 00:20
[2019-12-02 10:56] VITALS: BP 152/67; PULSE 60; RESP 25; TEMP 35.3; O2SAT 96
--- NOTE | 2019-12-02 12:24 | PHA.REVIEW ---
Pharmacy Admission Review - Admission Clinical Review (Last Reviewed 11/29/19 @ 20:14 by Jeffery Olivarez MD) Discharge planning issues (Acute) DVT prophylaxis (Acute) Fracture, intertrochanteric, left femur (Acute) Pain due to fracture (Acute) Iodinated Contrast Media Adverse Reaction (Unknown, Unverified 11/27/19 20:57) Swelling/Edema Height 5 ft 7 in Weight 67.3 kg - Renal Dosing Renal Dosing: BUN 27 mg/dL (7-18) H 11/30/19 07:10 Creatinine 1.09 mg/dL (0.70-1.30) 11/30/19 07:10 Medications needing adjustments: Reviewed (Crcl ~49 mL/min current meds okay.) - Anticoagulation Anticoagulation: Hgb 10.5 g/dL (13.5-17.5) L 11/30/19 07:10 Hct 33.1 % (40.0-50.0) L 11/30/19 07:10 Plt Count 128 10^3/uL (130-400) L 11/30/19 07:10 INR 1.2 (0.9-1.1) H 11/30/19 07:10 Creatinine 1.09 mg/dL (0.70-1.30) 11/30/19 07:10 DVT Prohphylaxis: Reviewed (Being conservative per provider. Pt has SCDs and TEDs ordered.) Therapeutic Anticoagulation: N/A - Opiate Usage Evaluate Pain Scale/Pains Meds: Reviewed Scheduled Bowel Reg ordered if on Opiates?: Yes - Relevant Labs Sodium 140 mmol/L (136-145) 11/30/19 07:10 Potassium 4.2 mmol/L (3.5-5.1) 11/30/19 07:10 Chloride 105 mmol/L (98-107) 11/30/19 07:10 Magnesium 2.1 mg/dL (1.8-2.4) 11/30/19 07:10 Electrolytes, C-Reactive P, ESR: Reviewed - DM Control DM Control: Glucose 92 mg/dL (74-106) 11/30/19 07:10 Insulin Dosing: N/A - Heart Failure/GA EF%, CHARLI's, B-Blockers, Diuretics: N/A - BP Control BP Control: Blood Pressure 152/67 If elevated: Reviewed (BP has been up and down this admission (elevated, normal and low).) - Qtc Review If Elevated: N/A (QTc 429 on 11/29/2019) - IV to PO Switch IV Medications: Intervened (pt taking other PO meds, will ask provider about changing acetaminophen to PO) - Home Meds Home Med List reviewed: Reviewed Relevent Home Meds Not ordered & why?: carbamide peroxide, cholecalciferol, rosuvastatin, vitamin E - Current meds Current Medication Order Review: Reviewed - Comments Comments/Follow Ups: Watch VS, labs and for med changes.
--- NOTE | 2019-12-02 14:16 | CHAPLAIN ---
Derick came in after a fall at home. He was a hospice patient at the time. He was taken off hospice to have his hip repaired after the fall. His Sally is his caregiver, with help from her sister, Kiesha. Sally was worried about the decision to have surgery, because her mother had some kind of surgery before she , and never quite recovered. The surgery went well on 11/29 according to Sally. Derick is up in the chair this morning when I visit and seems comfortable. Carolyn said she is concerned that Derick still has a lot of drugs in his system. She worries about balancing his pain control with his ability to be more alert and speak with her. She said she knows he will not likely recover to the point where he was up and walking around, although unsteadily, before the surgery. She seems realistic about this. She said her daughter, who visited from [place] on Monday, has told that the she needs to let Derick go. A the same time, Carolyn said she is grateful for any interaction she can have with him. Today he responded to me when I greeted him and he has opened his eyes and said a word or two. [facility] met with Carolyn and Kiesha to answer any questions. She is trying to coordinate with the respiratory care program director for Derick's discharge, possibly tomorrow or the next day. Carolyn does not want Derikc to go to a rehab where she can't visit due COVID, and she is also nervous about helping him move from the bed to a chair at home alone. Carolyn told me during a previous visit that she is not fully committed to [facility], although she has followed it and participated in it her whole life. She has met with Rev. Antonette Mcdonald, the [employer], and enjoys those visits. I offered to pray with Derick and Carolyn and we did that.
[2019-12-02 15:10] VITALS: BP 151/72; PULSE 82; RESP 22; TEMP 37.3; O2SAT 100
[2019-12-02 15:23] VITALS: BP 135/67; PULSE 77; RESP 21; TEMP 37; O2SAT 99
--- NOTE | 2019-12-02 15:33 | CMPROGNOTE_ITS ---
- If Service Date Differs Date of service: 12/02/19 Time of Service: 15:33 Care Management Progress Note S/O: CM met with Derick along with his , Sally, and her sister, who were both in the room visiting. CM reported that Oleg from [facility] would visit today to discuss her concerns regarding returning home with Hospice support. Her main concerns were equipment, medications, and assistance in the home. CM was present during the conversation with Oleg. Sally expressed concern around Derick's movement, as it is taking multiple staff to move him from the bed to the chair. CM offered to talk with PT, and request a Palliative consult for today in order to go over expectations moving forward. CM again met with Sally while PT was in the room. After much discussion, Sally disclosed that she has up to 40 hrs per week for paid caregivers in the home through [employer]. CM requested an OT consult for tomorrow in order to have caregiver training. PT will also work with Sally and her sister tomorrow on palliative care nurse practitioner training. CM called Oleg from [facility]osp[facility] and requested a hospital bed from [facility], which will be delivered either Monday or Monday. Sally will take Derick home on Hospice on Monday with additional support from her sister. CM will continue to follow. A: 79 year old male admitted to Hospitalist service 09/29/19 for Left Hip Fx P: Derick will discharge to home on 12/04/19. Anticipate he will have an intake to return to Hospice care services and supports, and a hospital bed. Transport TBD by disposition and mobility. CM continues to follow.
[2019-12-02] MEDS: Acetaminophen 500 MG TAB 1000 MG PO (15:41)
--- NOTE | 2019-12-02 18:10 | W.PM.PROGNOT ---
Date of Service Date of service: 12/02/19 Time of Service: 08:03 Assessment and Plan Assessment and plan (1) Fracture, intertrochanteric, left femur: Status: Acute Assessment and plan: POD#2 s/p intramedullary fixation of left intertrochanteric hip fracture. His progress at this point is appropriate. Even with patients his age who are healthier, it takes some time for mobilization. Unfortunately, his , Sally, has some unrealistic expectations. I encouraged her that his progress is to be expected and he has been able to move more already with less pain than he would before. I expect he will be able to sit up right and be more comfortable in the days to come. Transitioning home will be difficult but she has herself and a caregiver to assist. It would be even more difficult without surgery which I reiterated to Sally. I also was very clear that we may need to treat pain and that this surgery was not to give better function or longer life. This was for pain control and mobility improvement. Qualifiers: Encounter type: initial encounter Fracture type: closed Fracture alignment: displaced Qualified Code(s): S72.142A - Displaced intertrochanteric fracture of left femur, initial encounter for closed fracture Subjective Subjective Interval history since last seen: Derick was able to sit on the edge of the bed with 2 assist. He otherwise has been in the bed. No acute issues. Pain apparently controlled with some pain during the transfers. Exam Narrative Exam Narrative: Resting in the bed. NAD. Left hip dressing c/d/i. Tolerates some gentle IR/ER of the hip. Objective Last Vital Signs Temp 36.7 C 12/02/19 18:55 Pulse 68 12/02/19 18:55 Resp 20 12/02/19 18:55 BP 117/60 12/02/19 18:55 Pulse Ox 97 12/02/19 18:55
[2019-12-02 18:55] VITALS: BP 117/60; PULSE 68; RESP 20; TEMP 36.7; O2SAT 97
--- NOTE | 2019-12-02 20:07 | W.PALLCONSUL ---
Date of service: 12/02/19 Time of Service: 18:07 History of Present Illness Narrative: 79 year old patient , previously on hospice, now admitted off hospice due to hip fracture and repair. I am meeting with his and sister in law as well as Derick to discuss overall expectations and goals. His states that she is uncertain she will be able to care for Derick once they return home. She is concerned about many things such as whether or not he will continue to have a catheter in place. She certainly help so as she goes through many changes of bedding etc. during the course of the day. She is also very concerned that he is going to fall again and that he will hurt himself more. She admits that her children both recommended that Derick be allowed to be medicated so that his hip fracture was not painful and then subsequently . She admits that she could not do this and therefore chose to have his hip surgically repaired. She pointed to the white chart that said that the aim was to reduce his pain, increase his ambulation, and hopefully return him back to the state he was prior to the fall. Unfortunately his admits that that was not a very good state due to his advanced dementia. She does not know if she regrets doing which she did, but she has doubts that she can take care of him. His [id number]-[id number] is also in the room. They feel that they will need to be 2 people in order to help him to get out of bed and safely pivot to a chair. They were also quite concerned about the agitation that he sometimes exhibits. His admits that most of the time from 3 PM to 7 PM she just walked and walked and walked with him. She is wonders what is going to happen now that he is unable to easily ambulate. During this whole time the patient was asleep. He does like to play with his teeth and many times he will push them out and pulled them back in etc. 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 His and stbjgx-he-fdd who care for him do not know how this is going to be possible given his agitation at times as well as trying to keep him safe from falls etc. While I was in the room he did appear uncomfortable with grimacing. I recommended that staff treat him with acetaminophen. I spoke for a long time with his about overall goals. She understands that he has dementia and that this will likely be a terminal disease for him. She finds it hard to think about giving him up. She says she does not sleep well without him. I did offer to have her lie down in bed with him as she has gained much comfort from that in the past. We also spoke about the next time in what would she change with her choices if she could do it again especially given the fact that he will likely have more falls. She understands perhaps letting him go peacefully would be a blessing. We also spoke about ambulation and how he may not be able to ambulate. She is in hopes that he will. His agitation seems to be worse between 3 and 7. At the same time increasing his Risperdal does not seem to be in his best interest at this time. They may have to do this but it does have the side effect of parkinsonian is him. Per his this has been happening. I would recommend that he go home with trazodone 50 mg a.m. 2 PM and then 100 mg at night. Hopefully then they can decrease some of the risperidone and perhaps some of his parkinsonian movements. This is all a work in progress as his oscillates between understanding that he needs medication to be comfortable and at the same time not wanting him to be anything less than what he can be. He remains a DNR/DNI. I enjoyed very much speaking with his . She seems to be wrestling with coming to terms with dementia being a terminal disease. Hopefully she has moved a little forward in this. It sounds like her kids understand the big picture. I help her children can help her to move towards complete comfort care for her I have spent more than 50% of time in counseling with this patient. Review of Systems Unobtainable due to mental condition PFSH Medical History Aggressive behavior due to dementia no longer aggressive, per Alzheimers disease At risk for unsafe behavior Benign essential hypertension Benign prostatic hyperplasia Benign prostatic hyperplasia with urinary frequency CAD (coronary artery disease) Chest pain ETT negative at 10 mets Roldan-Morse respiration Cholelithiasis NOS Chronic ischemic heart disease IWMI 06/15, stenting RCA with 2 stents; EF 45% multiple WMA; Mild MR; Mild TR 06/21/02- 3 vessel disease; Prox and mid LAD, Prox LCX, RCA 10/16/02- Dobut stress echo; No ischemia 130 bpm/84% max pred 10/1606/11/06- Stress Test 01/18; EF 45-50% 03/14/18- 02/21 clinic visit w/ local coating machine helper/jung Cognitive disorder Colonic polyp CPAP (continuous positive airway pressure) dependence still wears it regularly Disturbance of consciousness Dizziness and giddiness DNI (do not intubate) DNR (do not resuscitate) Elevated PSA Bx fibroglandular hyperplasia Encounter for hospice care discussion Family history of identical twins his twin 2012 from Alz Dz Fatty liver Frequent falls Goals of care, counseling/discussion Hemorrhoids Hoarding behavior family trying to get rid of excess he perseverates on his tools [place] (hard of hearing) will not wear his hearing aids hides them Hospice care patient Hyperlipidemia Hypertriglyceridemia Impotence Insomnia Knee pain Mixed Alzheimer's and vascular dementia advanced, severe Nephrolithiasis Osteoarthritis Pain due to fracture Palliative care patient POLST (Physician Orders for Life-Sustaining Treatment) 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 Do you need help understanding health information?: Always current occupation: retired from [employer] What is your relationship status?: How often do you talk on the phone with friends or family?: never How often do you get together with friends or relatives?: twice per week Panel score (0-1 are the most socially isolated patients): 1 What type of physical activity do you participate in: walking and assisted ambulation Duration: 15-30 minutes/day Frequency: daily Special jamaal needs: No Seatbelt use: always Working smoke detector in home: Yes Fire extinguisher in home: Yes Do you feel safe at home: Yes Do you feel safe in your relationship?: Yes Additional Social history: Sally and dihesg-uw-ilp Kiesha are his primary caregivers. Daughter lives in [place], but comes and helps when she can on weekends. Estranged from only son in [place]. He has 2 children, also out of touch. Wandering at night. exhausted. Continues to decline dramatically in 2020. Qualifies for hospice; not quite ready for this. Consult ordered Derick hides his hearing aids, refuses to wear them and his glasses. Does wear his CPAP at night though. Hasn't fallen recently. Very unsteady gait, very difficult to get out of his chair. Exam Const General: no acute distress and frail appearing Nutritional Appearance: average body habitus Orientation: not awake HENMT Other: At times he grimaced. He did not seem to mind being touched but at the same time moving him appeared to cause discomfort Eyes Other: He did open his right eye when I went to his bedside. He closed it and then never opened up his eyes again . Resp Effort & Inspection: normal respiratory effort Auscultation: diminished lung sounds Cardio Rhythm: regular rhythm Heart Sounds: murmur GI Palpation: soft and no hepatosplenomegaly Results Last Vital Signs Temp 98.1 F 12/02/19 18:55 Pulse 68 12/02/19 18:55 Resp 20 12/02/19 18:55 BP 117/60 12/02/19 18:55 Pulse Ox 97 12/02/19 18:55 Labs Result diagrams: 11/30/19 07:10 11/30/19 07:10
[2019-12-02] MEDS: traMADol 50 MG TAB PO (20:44)
[2019-12-02] MEDS: traZODone 50 MG TAB PO (21:15)
[2019-12-02] MEDS: Donepezil 5 MG TAB 10 MG PO (21:17)
[2019-12-02] MEDS: Senna TAB PO (21:18)
[2019-12-02] MEDS: Melatonin 3 MG TAB 6 MG PO (21:18)
[2019-12-03] MEDS: Acetaminophen 500 MG TAB 1000 MG PO ×2 (00:50→15:43)
[2019-12-03] MEDS: Ketorolac 15 MG/ML VIAL IVP ×3 (06:04→22:11)
[2019-12-03] MEDS: Levothyroxine 50 MCG TAB PO (06:04)
--- NOTE | 2019-12-03 09:14 | W.PM.PROGNOT ---
Date of Service Date of service: 12/03/19 Time of Service: 09:14 Assessment and Plan Assessment and plan (1) Fracture, intertrochanteric, left femur: Status: Acute Assessment and plan: POD 3 for palliative repair. Appears comfortable. 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 For now, continue risperidone 0.5 mg PO TID, trazodone 50 mg PO HS. (4) POLST (Physician Orders for Life-Sustaining Treatment): Status: Acute Assessment and plan: plan for patient was to discharged to home on hospice tomorrow but now wishes for discharge to [facility]. Covid testing performed. case discussed with Dr Quiles who is in agreement Subjective Subjective Interval history since last seen: unable to obtain ROS dt severe advanced dementia, appears comfortable and in no acute distress. has been hemodynamically stable and taking PO. Exam Narrative Exam Narrative: Opens eyes to name. Does not appear to be in pain. Left hip drsg c/d/i. Working with PT. Poor appetite, feeds him. Does not appear SOB, does not answer, smiles. Const General: no acute distress and frail appearing Nutritional Appearance: average body habitus Orientation: not awake Resp Effort & Inspection: normal respiratory effort Auscultation: diminished lung sounds Cardio Rhythm: regular rhythm Heart Sounds: murmur GI Inspection: normal to inspection Palpation: soft Auscultation: normal bowel sounds General: other (zepeda to gravity draining med yellow urine) Skin Lesions: other (surgical dressing intact) Rashes: no rashes Objective Last Vital Signs Temp 36.7 C 12/02/19 18:55 Pulse 68 12/02/19 18:55 Resp 20 12/02/19 18:55 BP 117/60 12/02/19 18:55 Pulse Ox 97 12/02/19 18:55
--- NOTE | 2019-12-03 09:22 | OT.INIE ---
Occupational Therapy Notes Inpatient Occupational Therapy Evaluation Date: 12/03/19 Referring Doctor: Kaleigh Issa NP OT Orders: For Caregiver Training Precautions: Fall, Standard, DNR/DNI PATIENT PROFILE/ADMITTING DIAGNOSIS: Pt is an 79 year old male who presented to the ED on 11/27/19 due to a hip fx. Pts reports that pt has had frequent falls in the past week. OT consultation was ordered for caregiver training. Past Medical History- Aggressive behavior due to dementia no longer aggressive, per Alzheimers disease At risk for unsafe behavior Benign essential hypertension Benign prostatic hyperplasia Benign prostatic hyperplasia with urinary frequency CAD (coronary artery disease) Chest pain ETT negative at 10 mets Roldan-Morse respiration Cholelithiasis NOS Chronic ischemic heart disease IWMI 06/15, stenting RCA with 2 stents; EF 45% multiple WMA; Mild MR; Mild TR 06/21/02- 3 vessel disease; Prox and mid LAD, Prox LCX, RCA 10/16/02- Dobut stress echo; No ischemia 130 bpm/84% max pred 10/1606/11/06- Stress Test 01/18; EF 45-50% 03/14/18- 02/21 clinic visit w/ local inbound call center representative/niacin Cognitive disorder Colonic polyp CPAP (continuous positive airway pressure) dependence still wears it regularly Disturbance of consciousness Dizziness and giddiness DNI (do not intubate) DNR (do not resuscitate) Elevated PSA Bx fibroglandular hyperplasia Encounter for hospice care discussion Family history of identical twins his twin 2012 from Alz Dz Fatty liver Frequent falls Goals of care, counseling/discussion Hemorrhoids Hoarding behavior family trying to get rid of excess he perseverates on his tools [place] (hard of hearing) will not wear his hearing aids hides them Hospice care patient Hyperlipidemia Hypertriglyceridemia Impotence Insomnia Knee pain Mixed Alzheimer's and vascular dementia advanced, severe Nephrolithiasis Osteoarthritis Pain due to fracture Palliative care patient POLST (Physician Orders for Life-Sustaining Treatment) DNR/DNI 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 baseline level of function. She reports that they live together in a split level home and has multiple stairs that her would have to go up to get into their living space. He has Dementia and has been slowly presenting with a cognitive decline for the past 7 years. She states that she has LATHE PULLER's that come in 2x per week to (A) with his bathing routines, she (A) with dressing at times but reports that her was able to walk to where he needed to be and (A). She does report that he has been falling specifically 3x in one week prior to his admission. She states that she (A) him with feeding at baseline and he was functioning but not (I). She also reports that he was on hospice care which she had to stop while he had his surgery for his hip. She states that she has children and a sister who (A) her in their home. On 12/05/19 his reports that they have been for over 52 years. She performs all cooking, cleaning and ben day artist as well as driving for community mobility. She states that they are looking in to getting her a hospital bed for at home as well as a shower bench. Equipment owned/DME: gaits on stairs, grab bars SUBJECTIVE: Pt was lying in bed when OT arrived. Pts was present in the room and receptive to caregiver training. OBJECTIVE: General Observation: Pt was lying in bed with zepeda in place. Mental Status: Alert to name Pain: c/o pain in (L) hip ROM: Unable to assess at this time as pt was unable to follow commands. He does have some AROM but it appears limited. STRENGTH: Unable to assess as pt was unable to follow commands. FUNCTIONAL MOBILITY/ADLS: Transfers Max (A) x3 Caregiver/Self Care Training [id number]: Pt's was present during todays session she is concerned with pt returning home and not being able to care for him due to his decline. She states that she is not open to SNF based on not being able to visit her . She presents to OT session with concerns on toileting hygiene, functional mobility, dressing routines, bathing routines and how to (A) pt. OT educates and discusses with pt's pts current level of function, the dependency that pt will essentially require max (A) for his ADL/IADL at this time including bed mobility and rolling. OT educates pt on toileting hygiene and don and doffing disposable underwear with zepeda, bed positioning and the need for step by step/max (A) due to pts current cognitive decline. Pt's is concerned on pts safety and getting in and out of bed with another possibility of falls. OT educates pt on bed alarms, although due to pts decline in functional mobility pt will have difficulty getting himself into sit-stand without (A). Majority of consult was spent with pt and pts answering questions on self care and assessment of pts self care performance. Based on pts decline both cognitively and functionally OT does not feel that pt can safely return home as pts needs have significantly magnified from his prior level of function. OT is willing to meet with pts 1 more time to go over any ADLs/ assess pts functional (I) once he is in the sitting position. BALANCE: Static sitting Poor Dynamic Sitting Poor SPECIAL TESTS: Daily Activity Limitations Standardized Measure [facility] AM -PAC ?6 clicks? Daily Activity Inpatient Short Form: Raw score: 7 Standardized score: 20.13 CMS score: 92.44% INFORMED CONSENT/EDUCATION: Pt instructed in purpose of OT Consult and plan of care. ASSESSMENT: Patient is a 79-year-old male referred to occupational therapy services with diagnosis of advanced dementia and admitted with IM nailing through the left femur. Patient presents with clinical signs and symptoms consistent with dx.OT consult was ordered for caregiver training and assessment of pts level of function in regards to his ADL/IADL routines and safety to return to his home setting. Pt has had a significant decline in safety awareness, functional mobility, functional activity tolerance, performance of ADLs, decline in eating, swallowing and hand to mouth, cognitive decline, inability to (A) with his advanced level of care. Patient is assessed as a high [id number] complexity based on the following: History: see above Examination: see functional limitations as noted above Presentation: evolving Decision Making: AMPA Score 7, CMS score 92.44% GOALS 1. OT will attempt to meet with pts 1 more time to go over any questions that she may have tomorrow. Then plan will be discharge pt from skilled OT services. PLAN OF CARE/TREATMENT PLAN: OT consult was ordered for caregiver training, OT will attempt to meet with caregiver/ tomorrow to go over any needs. Please see recommendations below. DISCHARGE RECOMMENDATIONS Based on pts decline in functional mobility, inability to (A) with his ADL/IADL routines, decline in functional activity tolerance and decline in overall quality of life and safety, OT recommends that pt go SNF vs. home on hospice care per recommendations under hospice/palliative care team. TREATMENT TIME/MINUTES/CODES [id number], [id number], 50 minutes (08:30) Maria L Hein OTR/L [facility]
[2019-12-03] MEDS: MORPHine 10 MG/ML VIAL IVP ×2 (09:49→18:36)
--- NOTE | 2019-12-03 09:52 | NUR.NOTE ---
Nursing Note: Pt given Morphine 4mg per order range. Vial not scanned because disposed of in sharps container accidentally before administration after wasting with Wendie Contreras RN. LYNN Pressley verified with me that medication was correct.
[2019-12-03] MEDS: Bisacodyl 10 MG SUPP PR (09:55)
[2019-12-03] MEDS: risperiDONE 0.5 MG TAB PO ×2 (13:15→20:10)
--- NOTE | 2019-12-03 14:46 | CHAPLAIN ---
Carolyn and her sister Kiesha, were both visiting with Derick when I stopped by this morning. Carolyn said the plan now is to take Derick home tomorrow, although Carolyn still is nervous about how she will care for him and get him out of bed, if he can't pivot on his own. She did say though that she wants to bring him home so she can see him. (if he is at a rehab, she may not be allowed in to visit because of quarantine rules). I encouraged Carolyn take one day at a time and not begin worry about things too far ahead.
--- NOTE | 2019-12-03 16:02 | PDOC.CMPRO ---
- If Service Date Differs Date of service: 12/03/19 Time of Service: 16:02 Care Management Progress Note S/O: Derick was resting comfortably when CM visited. His , Sally and her sister, Kiesha were visiting. Sally and Kiesha had caregiver training today with PT and OT, and it was determined that they are not going to be able to move Derick from the bed to the chair and back. CM discussed other options for Derick, as she does not feel comfortable caring for him on her own at this time. CM sent a referral to [facility], and a bed offer was extended. Sally has agreed to transfer him to [facility] for a short period of rehab. During that time she will coordinate additional help at home, using the [facility] Highest needs benefit. She is happy that [facility] has opened their visitation during the 14 day observation period, although it has to be scheduled in 30 min increments. If his Covid test results are back tomorrow, he will transition at that time. CM will continue to follow. A: 79 year old male admitted to Hospitalist service 09/29/19 for Left Hip Fx P: Derick will discharge to [facility] once his Covid test results are back. He will transport via w/c van vs ambulance. After his short term rehab, he will return home. Anticipate he will have an intake to return to Hospice care services and supports, and a hospital bed. CM continues to follow.
[2019-12-03] MEDS: Normal Saline Flush 10 ML SYR IVP ×2 (22:12→22:15)
[2019-12-03] MEDS: traZODone 50 MG TAB PO (22:17)
[2019-12-03] MEDS: Senna TAB PO (22:17)
[2019-12-03] MEDS: Donepezil 5 MG TAB 10 MG PO (22:17)
[2019-12-03] MEDS: Melatonin 3 MG TAB 6 MG PO (22:18)
[2019-12-04] MEDS: Acetaminophen 500 MG TAB 1000 MG PO ×2 (00:18→08:40)
[2019-12-04] MEDS: Levothyroxine 50 MCG TAB PO (05:16)
[2019-12-04] MEDS: Ketorolac 15 MG/ML VIAL IVP (05:16)
[2019-12-04 08:08] LABS: COVID-19 RT-PCR UVMMC Result Negative (Negative)
--- NOTE | 2019-12-04 08:28 | OTDS_ITS ---
Date of service: 12/04/19 Time of Service: 08:28 Occupational Therapy Notes Occupational Therapy Inpatient Discharge Summary Date: 12/04/19 Dates of Service: 12/03/19-12/04/19 Referring Doctor: Kaleigh Issa NP OT Orders: For Caregiver Training Precautions: Fall, Standard, DNR/DNI PATIENT PROFILE/ADMITTING DIAGNOSIS: Pt is an 79 year old male who presented to the ED on 11/27/19 due to a hip fx. Pts reports that pt has had frequent falls in the past week. OT consultation was ordered for caregiver training. Past Medical History- Aggressive behavior due to dementia no longer aggressive, per Alzheimers disease At risk for unsafe behavior Benign essential hypertension Benign prostatic hyperplasia Benign prostatic hyperplasia with urinary frequency CAD (coronary artery disease) Chest pain ETT negative at 10 mets Roldan-Morse respiration Cholelithiasis NOS Chronic ischemic heart disease IWMI 06/15, stenting RCA with 2 stents; EF 45% multiple WMA; Mild MR; Mild TR 06/21/02- 3 vessel disease; Prox and mid LAD, Prox LCX, RCA 10/16/02- Dobut stress echo; No ischemia 130 bpm/84% max pred 10/1606/11/06- Stress Test 01/18; EF 45-50% 03/14/18- 02/21 clinic visit w/ local rrts/jung Cognitive disorder Colonic polyp CPAP (continuous positive airway pressure) dependence still wears it regularly Disturbance of consciousness Dizziness and giddiness DNI (do not intubate) DNR (do not resuscitate) Elevated PSA Bx fibroglandular hyperplasia Encounter for hospice care discussion Family history of identical twins his twin 2012 from Alz Dz Fatty liver Frequent falls Goals of care, counseling/discussion Hemorrhoids Hoarding behavior family trying to get rid of excess he perseverates on his tools [place] (hard of hearing) will not wear his hearing aids hides them Hospice care patient Hyperlipidemia Hypertriglyceridemia Impotence Insomnia Knee pain Mixed Alzheimer's and vascular dementia advanced, severe Nephrolithiasis Osteoarthritis Pain due to fracture Palliative care patient POLST (Physician Orders for Life-Sustaining Treatment) DNR/DNI 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 baseline level of function. She reports that they live together in a split level home and has multiple stairs that her would have to go up to get into their living space. He has Dementia and has been slowly presenting with a cognitive decline for the past 7 years. She states that she has VEHICLE INSPECTOR's that come in 2x per week to (A) with his bathing routines, she (A) with dressing at times but reports that her was able to walk to where he needed to be and (A). She does report that he has been falling specifically 3x in one week prior to his admission. She states that she (A) him with feeding at baseline and he was functioning but not (I). She also reports that he was on hospice care which she had to stop while he had his surgery for his hip. She states that she has children and a sister who (A) her in their home. On 12/05/19 his reports that they have been for over 52 years. She performs all cooking, cleaning and label cutter as well as driving for community mobility. She states that they are looking in to getting her a hospital bed for at home as well as a shower bench. Equipment owned/DME: gaits on stairs, grab bars SUBJECTIVE: NT OBJECTIVE: ROM: Unable to assess at this time as pt was unable to follow commands. He does have some AROM but it appears limited. STRENGTH: Unable to assess as pt was unable to follow commands. FUNCTIONAL MOBILITY/ADLS: Transfers Max (A) x2 BALANCE: Static sitting Poor Dynamic Sitting Poor ASSESSMENT: Patient is a 79-year-old male referred to occupational therapy services with diagnosis of advanced dementia and admitted with IM nailing through the left femur. Patient presents with clinical signs and symptoms consistent with dx.OT consult was ordered for caregiver training and assessment of pts level of function in regards to his ADL/IADL routines and safety to return to his home setting. Pt has had a significant decline in safety awareness, functional mobility, functional activity tolerance, performance of ADLs, decline in eating, swallowing and hand to mouth, cognitive decline, inability to (A) with his advanced level of care. The plan is for pt to be discharged to SNF today pending Covid testing results. GOALS 1. OT will attempt to meet with pts 1 more time to go over any questions that she may have tomorrow. Then plan will be discharge pt from skilled OT services. PLAN OF CARE/TREATMENT PLAN: Discharge from skilled OT services. DISCHARGE RECOMMENDATIONS Based on pts decline in functional mobility, inability to (A) with his ADL/IADL routines, decline in functional activity tolerance and decline in overall quality of life and safety, OT recommends that pt go SNF vs. home on hospice care per recommendations under hospice/palliative care team. TREATMENT TIME/MINUTES/CODES N/A Maria L Hein OTR/L [facility]
[2019-12-04] MEDS: risperiDONE 0.5 MG TAB PO (08:39)
[2019-12-04] MEDS: Lisinopril 5 MG TAB PO (08:40)
[2019-12-04] MEDS: fentaNYL 12 MCG PATCH TD (12:08)
--- NOTE | 2019-12-04 12:09 | PT.INTREAT ---
Date of service: 12/04/19 Time of Service: 08:00 PT Notes Visit Reasons: ACUTE COMMINUTED INTERTROCHANTERIC LEFT FEMORAL FR Inpatient Physical Therapy Treatment Note [facility] Date: 12/04/2019 PRECAUTIONS: Fall, Activity as tolerated, WBAT L SUBJECTIVE: Derick indicates that he would like to get out of his bed. He is overheard telling his Carolyn Leon, I want to go home. OBJECTIVE: Derick is able to follow most directions well this morning. PAIN: Patient minimally complained of L hip discomfort with transfers BED MOBILITY/TRANSFERS Supine-sit: Max A Sit-stand: Max A x2 Stand-sit: Max A x2 Bed-Chair: Max A x2 GAIT Assistive Device: SLABBER LIGHT x2 Weight bearing: WBAT L Assist: Max A x2 Distance: Bed-chair transfer THEREX: Patient completed functional tfs-db-[id number] exercise x approximately 5 minutes with FWW support and Min A x2 - CGA x2. Patient requires feet to be braced by nursing and PT staff for safety. ASSESSMENT: Patient tolerated session with minimal complaints of L hip pain with transfers. He was able to perform functional ald-ta-[id number] exercise today, for an extended period of time. Patient would benefit from continued transfer training as well as global strengthening for improved mobility and activity tolerance. PLAN: Continue with transfer training and global strengthening TREATMENT CODE/TIME: 15 minutes; [id number]
[2019-12-04] MEDS: Normal Saline Flush 10 ML SYR IVP (12:11)
--- NOTE | 2019-12-04 13:28 | W.PM.DS.N ---
Date of service: 12/04/19 Time of Service: 13:28 DS: Diagnosis Discharge Diagnosis (1) Fracture, intertrochanteric, left femur: Status: Acute (2) Frequent falls: Status: Chronic (3) Mixed Alzheimer's and vascular dementia: Status: Chronic Discharge Plan Disposition Patient Disposition: [facility] SWING BED LEVEL 2 Condition: Fair Discharge Details Reason For Visit: ACUTE COMMINUTED INTERTROCHANTERIC LEFT FEMORAL FR Admit Date/Time: 11/29/19 16:05 Admit Provider: Jeanne Smith Attending Provider: Jeanne Smith [facility]: Mr Salhe is an 79 year old male with PMHx of advanced dementia (mixed vascular and Alzheimer's), for which he was on hospice, as well as ambulatory dysfunction with frequent falls, who fell at home on 11/27/2019 after tripping, fracturing his left hip. The patient was initially admitted to [facility] and after much discussion about medical management of pain vs surgical repair he ultimately received palliative surgical repair by Dr Olivarez per his wifes' wishes. Postoperatively he has progressed well, remaining hemodynamically and medically stable. He is followed by palliative and plan is to discharge on hospice care. Physical therapy worked with , who now does not feel she can manage him at home so requested referrals to be placed for LTC. He was accepted at [facility] and rehab but d/t new visitor policies and restrictions, cancelled transfer. He will now be discharged to swing level 2 care here at [facility] while decides upon final disposition. discharge plan discussed with DR Aiken who is in agreement Home Meds and New Rx's Prescriptions: No Action risperidone [Risperdal] 0.5 mg tablet 0.5 mg PO TID RF: 0 donepezil [Aricept] 10 mg tablet 10 mg PO DAILY RF: 0 vitamin E 400 unit capsule 400 unit PO DAILY RF: 0 melatonin 3 mg capsule 6 mg PO HS RF: 0 trazodone 50 mg tablet 50 mg PO QHS RF: 0 rosuvastatin 40 mg tablet 20 mg PO DAILY RF: 0 lisinopril 5 mg tablet 5 mg PO DAILY RF: 0 levothyroxine 50 mcg capsule 50 mcg PO DAILY RF: 0 finasteride 5 mg tablet 5 mg PO DAILY RF: 0 duloxetine 20 mg capsule,delayed release(DR/EC) 40 mg PO DAILY RF: 0 diltiazem HCl [Tiazac] 180 mg capsule,extended release 24 hr 180 mg PO DAILY RF: 0 cyanocobalamin (vitamin B-12) 1,000 mcg tablet 1,000 mcg PO DAILY RF: 0 cholecalciferol (vitamin D3) 25 mcg (1,000 unit) capsule 25 mcg PO DAILY RF: 0 carboxymethylcellulose sodium 0.5 % drops 1 drp OP QID RF: 0 carbamide peroxide 6.5 % drops 2 drp OT DAILY RF: 0 Discharge Instructions Additional Instructions: ORTHOPAEDIC DISCHARGE INSTRUCTIONS Activity: There are no restriction on motion. THe leg may be moved as necessary without concern for the fracture and the hardware, although certain positions may hurt more than others. It is safe to place weight on the leg. Dressing/Wound: The dressings should stay on for the first 1-2 weeks. If they are not soiled, they may stay on for the full 2 weeks. The wounds are closed with buried, disolvable sutures - so there is nothing to take out. No attention is needed. There is a crust you will see over the incision; this is skin glue. This should be left in place for 2 weeks and then let it fall off on its own. Follow-up: No formal follow-up is required. Please contact Dr. Olivarez's office for any issues or concerns about the hip, . Stand Alone Forms: Nursing Discharge Form Activity:: Activity as Tolerated Equipment/Supplies:: No Equipment Needed Diet:: As Tolerated Discharge Orders Discharge Orders: Discharge Order (Routine); Ordered 12/04/19 Ordered By: Teresa Skinner DS: Summary Status at Discharge Functional status at discharge: wheelchair bound Overall status at discharge: patient is not back to baseline Mental Status: other (severe advanced demential) Speech and Movement: other Mood: congruent mood Affect: normal affect Exam Narrative Exam Narrative: Opens eyes to name. Does not appear to be in pain. Left hip drsg c/d/i. Working with PT. Poor appetite, feeds him. Does not appear SOB, does not answer, smiles. Const General: no acute distress and frail appearing Nutritional Appearance: average body habitus Orientation: not awake Resp Effort & Inspection: normal respiratory effort Auscultation: diminished lung sounds Cardio Rhythm: regular rhythm Heart Sounds: murmur GI Inspection: normal to inspection Palpation: soft Auscultation: normal bowel sounds General: other (zepeda to gravity draining med yellow urine) Skin Lesions: other (surgical dressing intact) Rashes: no rashes Psych Mood: congruent mood Affect: normal affect DS: Data Vitals/I&O Vitals and I&O: Vital Signs Temperature 36.7 C 12/02/19 18:55 Temperature Source Tympanic 12/02/19 18:55 Pulse 68 12/02/19 18:55 Pulse Rhythm Regular 12/04/19 01:13 Respiratory Rate 20 12/02/19 18:55 Respiratory Effort Non-Labored 12/04/19 10:57 Respiratory Depth Normal 12/04/19 10:57 Respiratory Pattern Normal 12/04/19 10:57 Blood Pressure 117/60 12/02/19 18:55 Pulse Oximetry 97 12/02/19 18:55 Respiratory End-tidal CO2 35 11/30/19 10:01 Oxygen Delivery Method Room Air 12/02/19 18:55 Oxygen Flow Rate 0 12/02/19 18:55 Fraction of Inspired Oxygen (FIO2) 12/04/19 11:55 Pain Level 0 12/02/19 18:55 Comment 12/02/19 15:23 Intake & Output 12/03/19 12/04/19 12/04/19 23:59 11:59 23:59 Intake Total 480 / 650 190 / 670 480 / 670 Output Total 675 / 1075 700 / 700 Balance -195 / -425 -510 / -30 480 / -30 Weight 66.9 kg Intake: IV Oral 480 / 650 180 / 660 480 / 660 Output: Urine 675 / 1075 700 / 700 Other: Urine Color Light Maggi Light Maggi Urine Appearance Clear Clear Stool Size Moderate Small Stool Characteristics Soft Soft Formed Formed Brown Data Completed and Pending Labs on day of discharge: Labs from last 24 hours 12/03/19 15:20 COVID-19 PCR Negative Nasopharyn COVID-19 PCR Not Applicable Ref Test Perform Site [facility] lab PFSH Medical History Aggressive behavior due to dementia no longer aggressive, per Alzheimers disease At risk for unsafe behavior Benign essential hypertension Benign prostatic hyperplasia Benign prostatic hyperplasia with urinary frequency CAD (coronary artery disease) Chest pain ETT 4 negative at 10 mets Roldan-Morse respiration Cholelithiasis NOS Chronic ischemic heart disease IWMI 06/15, stenting RCA with 2 stents; EF 45% multiple WMA; Mild MR; Mild TR 06/21/02- 3 vessel disease; Prox and mid LAD, Prox LCX, RCA 10/16/02- Dobut stress echo; No ischemia 130 bpm/84% max pred 10/1606/11/06- Stress Test 01/18; EF 45-50% 03/14/18- 02/21 clinic visit w/ local galley boy/jung Cognitive disorder Colonic polyp CPAP (continuous positive airway pressure) dependence still wears it regularly Disturbance of consciousness Dizziness and giddiness DNI (do not intubate) DNR (do not resuscitate) Elevated PSA Bx fibroglandular hyperplasia Encounter for hospice care discussion Family history of identical twins his twin 2012 from Alz Dz Fatty liver Frequent falls Goals of care, counseling/discussion Hemorrhoids Hoarding behavior family trying to get rid of excess he perseverates on his tools [employer] [place] (hard of hearing) will not wear his hearing aids hides them Hospice care patient Hyperlipidemia Hypertriglyceridemia Impotence Insomnia Knee pain Mixed Alzheimer's and vascular dementia advanced, severe Nephrolithiasis Osteoarthritis Pain due to fracture Palliative care patient POLST (Physician Orders for Life-Sustaining Treatment) DNR/DNI CRANK HAND (08/08/19) Sensorineural hearing loss Shortness of breath Sleep apnea, unspecified Has C-pap machine Spinal stenosis, lumbar Squamous cell carcinoma in situ of skin Subjective tinnitus Tubular adenoma of colon Unintentional weight loss 50 lbs lost in 1 year 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 Do you need help understanding health information?: Always current occupation: retired from [employer] What is your relationship status?: How often do you talk on the phone with friends or family?: never How often do you get together with friends or relatives?: twice per week Panel score (0-1 are the most socially isolated patients): 1 What type of physical activity do you participate in: walking and assisted ambulation Duration: 15-30 minutes/day Frequency: daily Special jamaal needs: No Seatbelt use: always Working smoke detector in home: Yes Fire extinguisher in home: Yes Do you feel safe at home: Yes Do you feel safe in your relationship?: Yes Additional Social history: Sally and [id number] Kiesha are his primary caregivers. Daughter lives in [place], but comes and helps when she can on weekends. Estranged from only son in [place]. He has 2 children, also out of touch. Wandering at night. exhausted. Continues to decline dramatically in 2020. Qualifies for hospice; not quite ready for this. Consult ordered Derick hides his hearing aids, refuses to wear them and his glasses. Does wear his CPAP at night though. Hasn't fallen recently. Very unsteady gait, very difficult to get out of his chair.
== END 2019-12-04 14:37 | disposition swing bed (61) | DRG 481 ==
PROVIDERS: Student in an Organized Health Care Education/Training Program; Admitting Provider Internal Medicine; PCP Family Medicine; Visit Provider Internal Medicine
PROC: 0QS706Z Reposition Left Upper Femur with Intramedullary Internal Fixation Device, Open Approach (ICD-10-PCS; CPT 27245; principal; 2019-11-30 07:20)
DX: S72.142A Displaced intertrochanteric fracture of left femur, initial encounter for closed fracture (principal); F02.81 Dementia in other diseases classified elsewhere, unspecified severity, with behavioral disturbance; E03.9 Hypothyroidism, unspecified; W19.XXXA Unspecified fall, initial encounter; Z91.81 History of falling; G30.9 Alzheimer's disease, unspecified; F02.80 Dementia in other diseases classified elsewhere, unspecified severity, without behavioral disturbance, psychotic disturbance, mood disturbance, and anxiety; F01.50 Vascular dementia, unspecified severity, without behavioral disturbance, psychotic disturbance, mood disturbance, and anxiety; Z66 Do not resuscitate; I25.10 Atherosclerotic heart disease of native coronary artery without angina pectoris; I25.2 Old myocardial infarction; I10 Essential (primary) hypertension; E78.5 Hyperlipidemia, unspecified; N40.1 Benign prostatic hyperplasia with lower urinary tract symptoms; R35.0 Frequency of micturition; K76.0 Fatty (change of) liver, not elsewhere classified; G47.00 Insomnia, unspecified; M19.90 Unspecified osteoarthritis, unspecified site; H90.3 Sensorineural hearing loss, bilateral; Z91.83 Wandering in diseases classified elsewhere; R63.4 Abnormal weight loss; Z51.5 Encounter for palliative care; G89.11 Acute pain due to trauma; M25.552 Pain in left hip
CPT/HCPCS: 27245; 36415; 80048; 85027; 97110; 97163; 97166; 97530; 97535; 99222; 99231; 99233; 99239; 99253; 99255; NC; U0003; 71045; 73501; 81003; 81015; 83735; 85025; 85610; 87086; J0131; J0690; J1885; J2270; J2370; J2405

== ENCOUNTER 2019-12-04 14:38 | Inpatient (IN) | payer MEDICARE, MEDICAID, SELFPAY ==
--- NOTE | 2019-12-04 14:24 | HPE_ITS ---
Date of service: 12/04/19 Time of Service: 14:24 Assessment and Plan Assessment and plan (1) Fracture, intertrochanteric, left femur: Status: Acute Assessment and plan: POD 4 for palliative repair. Appears comfortable. 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 maintain safety precautions. continue risperidone 0.5 mg TID and trazodone 50 mg at HS (3) Discharge planning issues: Status: Acute Assessment and plan: case management following, home on hospice vs LTC placement. History of Present Illness History of Present Illness Chief Complaint: left hip pain Narrative: Mr Saleh is an 79 year old male with PMHx of advanced dementia (mixed vascular and Alzheimer's), for which he was on hospice, as well as ambulatory dysfunction with frequent falls, who fell at home on 11/27/2019 after tripping, fracturing his left hip. The patient was initially admitted to [facility] and after much discussion about medical management of pain vs surgical repair he ultimately received palliative surgical repair by Dr Olivarez per his wifes' wishes. Postoperatively he has progressed well, remaining hemodynamically and medically stable. He is followed by palliative and plan is to discharge on hospice care. Physical therapy worked with , who now does not feel she can manage him at home so requested referrals to be placed for LTC. He was accepted at [facility] and rehab but d/t new visitor policies and restrictions, cancelled transfer. He will now be admitted to [facility] level 2 care here at [facility] while decides upon final disposition. admission plan discussed with DR Aiken who is in agreement Review of Systems Unobtainable due to mental status (severe advanced dementia) [facility] Medical History Aggressive behavior due to dementia no longer aggressive, per Alzheimers disease At risk for unsafe behavior Benign essential hypertension Benign prostatic hyperplasia Benign prostatic hyperplasia with urinary frequency CAD (coronary artery disease) Chest pain ETT negative at 10 mets Roldan-Morse respiration Cholelithiasis NOS Chronic ischemic heart disease IWMI 06/15, stenting RCA with 2 stents; EF 45% multiple WMA; Mild MR; Mild TR 06/21/02- 3 vessel disease; Prox and mid LAD, Prox LCX, RCA 10/16/02- Dobut stress echo; No ischemia 130 bpm/84% max pred 10/1606/11/06- Stress Test 01/18; EF 45-50% 03/14/18- 02/21 clinic visit w/ local superintendent local/jung Cognitive disorder Colonic polyp CPAP (continuous positive airway pressure) dependence still wears it regularly Disturbance of consciousness Dizziness and giddiness DNI (do not intubate) DNR (do not resuscitate) Elevated PSA Bx fibroglandular hyperplasia Encounter for hospice care discussion Family history of identical twins his twin 2012 from Alz Dz Fatty liver Frequent falls Goals of care, counseling/discussion Hemorrhoids Hoarding behavior family trying to get rid of excess he perseverates on his tools [place] (hard of hearing) will not wear his hearing aids hides them Hospice care patient Hyperlipidemia Hypertriglyceridemia Impotence Insomnia Knee pain Mixed Alzheimer's and vascular dementia advanced, severe Nephrolithiasis Osteoarthritis Pain due to fracture Palliative care patient POLST (Physician Orders for Life-Sustaining Treatment) DNR/DNI DIRECTOR HEALTH (08/08/19) Sensorineural hearing loss Shortness of breath Sleep apnea, unspecified Has C-pap machine Spinal stenosis, lumbar Squamous cell carcinoma in situ of skin Subjective tinnitus Tubular adenoma of colon Unintentional weight loss 50 lbs lost in 1 year 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 Do you need help understanding health information?: Always current occupation: retired from [employer] and [employer] What is your relationship status?: How often do you talk on the phone with friends or family?: never How often do you get together with friends or relatives?: twice per week Panel score (0-1 are the most socially isolated patients): 1 What type of physical activity do you participate in: walking and assisted amb ulation Duration: 15-30 minutes/day Frequency: daily Special jamaal needs: No Seatbelt use: always Working smoke detector in home: Yes Fire extinguisher in home: Yes Do you feel safe at home: Yes Do you feel safe in your relationship?: Yes Additional Social history: Sally and [id number] Kiesha are his primary caregivers. Daughter lives in [place], but comes and helps when she can on weekends. Estranged from only son in [place]. He has 2 children, also out of touch. Wandering at night. exhausted. Continues to decline dramatically in 2020. Qualifies for hospice; not quite ready for this. Consult ordered Derick hides his hearing aids, refuses to wear them and his glasses. Does wear his CPAP at night though. Hasn't fallen recently. Very unsteady gait, very difficult to get out of his chair. Meds Home Medications and Allergies Home Medications Medication Instructions Recorded Confirmed Type carbamide peroxide 6.5 % ear drops 2 drp OT DAILY ml 06/26/19 12/04/19 History carboxymethylcellulose sodium 0.5 1 drp OP QID 06/26/19 12/04/19 History % eye drops cholecalciferol (vitamin D3) 25 25 mcg PO DAILY 06/26/19 11/27/19 History mcg (1,000 unit) capsule cyanocobalamin (vitamin B-12) 1,000 mcg PO DAILY 06/26/19 11/27/19 History 1,000 mcg tablet diltiazem HCl 180 mg capsule,24 180 mg PO DAILY 06/26/19 12/04/19 History hr,extended release donepezil 10 mg tablet 10 mg PO DAILY 06/26/19 12/04/19 History duloxetine 20 mg capsule,delayed 40 mg PO DAILY cap 06/26/19 12/04/19 History release finasteride 5 mg tablet 5 mg PO DAILY 06/26/19 12/04/19 History levothyroxine 50 mcg capsule 50 mcg PO DAILY 06/26/19 12/04/19 History lisinopril 5 mg tablet 5 mg PO DAILY 06/26/19 12/04/19 History melatonin 3 mg capsule 6 mg PO HS cap 06/26/19 12/04/19 History rosuvastatin 40 mg tablet 20 mg PO DAILY 06/26/19 11/27/19 History trazodone 50 mg tablet 50 mg PO QHS 06/26/19 12/04/19 History vitamin E 400 unit capsule 400 unit PO DAILY 06/26/19 11/27/19 History risperidone 0.5 mg tablet 0.5 mg PO TID tab 08/08/19 12/04/19 History Allergies Allergy/AdvReac Type Severity Reaction Status Date / Time Iodinated Contrast Media AdvReac Unknown Swelling/Ed Unverified 11/27/19 20:57 jaime Exam Const General: cooperative, comfortable, no acute distress and frail appearing (elderly gentleman, older than stated age) Nutritional Appearance: thin Orientation: alert, awake and confused (at baseline, dementia) [facility] Head: normal to inspection, normocephalic and atraumatic Resp Effort & Inspection: normal respiratory effort (respirations even and unlabored) GI Inspection: normal to inspection Palpation: soft Skin Lesions: other (surgical dressing intact, no surrounding erythema) Neuro General: patient alert and patient awake Extrem General: no pedal edema COVID-19 Screening Have you,or household,traveled outside [place] in last 14 days?: No
--- NOTE | 2019-12-04 15:21 | PT.INTREAT ---
Date of service: 12/03/19 Time of Service: 08:10 PT Notes Visit Reasons: LEFT HIP FRACTURE Inpatient Physical Therapy Treatment Note [facility] Date: 12/03/2019 PRECAUTIONS: Fall, WBAT L, confusion SUBJECTIVE: Derick indicates that his is agreeable to participating in PT and transferring from bed to chair this morning. OBJECTIVE: Significant portion of today's PT session spent on caregiver training with patient's , Sally, Derick's primary caregiver, and patient's [id number], who is also a caregiver. Caregiver training includes education in proper body mechanics, safe method of transfer, use of gait belt, and proper positioning of caregivers and patient for maximum assist with two people. Caregiver training also includes management of Chambers catheter bag, as patient will be returning home with this. Patient's caregivers demonstrate need for additional physical assist from this therapist, as they are not able to perform transfers and bed mobility alone. It is clear at this time that even with caregiver training, it is not safe for patient to be transferred or assisted with bed mobility at his current level of function, by his current two caregivers, due to physical limitations. PAIN: Patient c/o L hip discomfort in a.m. BED MOBILITY/TRANSFERS Supine-sit: Max A x2 Sit-supine: Max A x2 Sit-stand: Max A x3 Stand-sit: Max A x3 Bed-Chair: Max A x3 Chair-bed: Max A x2 GAIT Assistive Device: CLOUD INFRASTRUCTURE ARCHITECT x2 Weight bearing: WBAT on L Assist: Max A x3 Distance: Bed-chair transfer in a.m.; chair-bed transfer in p.m. Deviation: Cues for decreased trunk flexion, cueing for taking steps ASSESSMENT: Patient continues to require significant assist for bed<>chair transfers, as well as bed mobility and sit<>stand transfers. At this time, given patient's physical and functional ability, it is not safe for his two caregivers ( and REGGIE) to be assisting with bed mobility and transfers at this time. PLAN: Continue with caregiver training and transfer training TREATMENT CODE/TIME: Session 1: 30 minutes; 74309 x2 Session 2: 15 minutes; [id number]
--- NOTE | 2019-12-04 15:40 | CHAPLAIN ---
[place] was changed to swing bed today. Carolyn said the plan is for him to go home Monday on hospice, and she hopes she'll be able to care for him. She had considered a SNF for him for PT, but currently she would not be able to visit him in a SNF, so she did not want to do that. Carolyn has support from her sister, Kiesha. She has also met with Sales Technician, Antonette Mcdonald before as well. Carolyn's daughter was planning on coming over from [place] to visit this weekend, as well.
[2019-12-04] MEDS: Acetaminophen 500 MG TAB 1000 MG PO ×2 (15:47→21:58)
[2019-12-04] MEDS: Ketorolac 15 MG/ML VIAL IVP ×2 (15:47→21:59)
[2019-12-04] MEDS: risperiDONE 0.5 MG TAB PO ×2 (15:48→19:20)
--- NOTE | 2019-12-04 16:50 | CMPROGNOTE_ITS ---
- If Service Date Differs Date of service: 12/04/19 Time of Service: 16:50 Care Management Progress Note S/O: Derick was lying in bed when CM met with him and his , Sally. KAREN was informed this morning that per [place] MARTIN, visitation at [facility] will be suspended until further notice, out of an abundance of caution. As this was Sally's main concern with sending Derick to [facility], CM had a discussion with her about how this will effect her decision. Sally declined sending Derick to [facility] for this reason. CM discussed next steps with Sally, knowing that her goal is to take Derick home for end of life care with Hospice support. CM offered that Derick stay at [facility] on SWB2 until 12/09/19, when he will be discharged home. KAREN explained that he would no longer have PT at [facility], as he does not meet criteria for SWB1. Sally agreed to this plan. CM completed the [facility] paperwork with Sally and addressed any questions and concerns she had regarding this admission. CM will continue to follow. A: Derick is an 79 year old male admitted to [facility] on 11/29/19 for Left Hip Fx. P: Derick will transition to B2 today for comfort measures, and for Sally to prepare to take him home on 12/09/19. He will transport home via ambulance. CM will coordinate Hospice admission, including meeting equipment needs for his discharge. CM will continue to follow and support discharge planning considerations.
--- NOTE | 2019-12-04 16:53 | CM.SWINGPC ---
- If Service Date Differs Date of service: 12/04/19 Time of Service: 16:53 Swingbed Plan of Care Plan of care: SWING BED PROGRAM ACTIVITIES/DISCHARGE PLAN OF CARE ACTIVITIES PLAN Date: 12/04/19 Identified Need: Comfort measures Intervention/Plan: CM will provide cart items, TV, Music, visits with CM and Chaplan. Initials KM DISCHARGE PLAN Date: 12/04/19 Identified Need: Comfort measures, Preparation for him to return home, Hospice coordination Intervention/Plan: CM will coordinate with Hospice for him to return home with equipment 12/09/19 Initials KM
[2019-12-04] MEDS: traMADol 50 MG TAB PO (19:20)
[2019-12-04] MEDS: Donepezil 5 MG TAB 10 MG PO (21:58)
[2019-12-04] MEDS: Melatonin 3 MG TAB 6 MG PO (21:58)
[2019-12-04] MEDS: traZODone 50 MG TAB PO (21:58)
[2019-12-04] MEDS: Normal Saline Flush 10 ML SYR IVP (21:59)
[2019-12-04] MEDS: Senna TAB PO (21:59)
[2019-12-05] MEDS: Ketorolac 15 MG/ML VIAL IVP ×3 (06:22→21:10)
[2019-12-05] MEDS: Levothyroxine 50 MCG TAB PO (06:23)
[2019-12-05] MEDS: Normal Saline Flush 10 ML SYR IVP ×2 (06:23→21:11)
[2019-12-05] MEDS: Acetaminophen 500 MG TAB 1000 MG PO ×3 (06:23→21:10)
[2019-12-05] MEDS: risperiDONE 0.5 MG TAB PO ×3 (08:44→21:10)
[2019-12-05] MEDS: Finasteride 5 MG TAB PO (08:44)
[2019-12-05] MEDS: Lisinopril 5 MG TAB PO (08:44)
--- NOTE | 2019-12-05 09:55 | TELEFU_ITS ---
Date of service: 12/05/19 Time of Service: 09:55 Nutritional Follow up NOTE: 79 year old male s/p hip fracture with severe dementia. Followed by hospice program and on EMERGENCY WORKER measures. Following regular meal plan with varied intake. Will provide meal preferences for comfort and enjoyment. will follow as needed. Time Spent in Nutritional Counseling and Treatment: 5 min spent face to face
[2019-12-05] MEDS: Scopolamine 1 MG/3 DAYS PATCH TD (13:12)
--- NOTE | 2019-12-05 14:00 | CHAPLAIN ---
Today is Sally and Derick's 54th anniversary. Sally said that Derick ate pieces of a banana and this really pleased her. She seems realistic about Derick's prognosis and said she is aware that he won't walk again. She explained that she won't let him go until he indicates to her that he is ready to, whether he says something to her and demonstrates this to her by not eating or drinking. Derick sometimes responses with a short answer when asked something directly. The current plan is for him to be on swing bed here until Monday (12/08) and then return home on hospice care. Sally said she is uncertain of how she'll do taking care of him, but she refused to have him admitted to [facility], where currently visitors are not allowed so she wouldn't be able to see him. Sally will have the support of her sister, Kiesha, her daughter, who comes from [place] on the weekends, as well as hospice staff. Sally said she is not sleeping well by herself, so she may get more rest once Derick is home.
--- NOTE | 2019-12-05 16:31 | PHA.REVIEW ---
Pharmacy Admission Review - Admission Clinical Review (Last Reviewed 11/29/19 @ 20:14 by Jeffery Olivarez MD) Discharge planning issues (Acute) Fracture, intertrochanteric, left femur (Acute) Iodinated Contrast Media Adverse Reaction (Unknown, Unverified 11/27/19 20:57) Swelling/Edema Height 5 ft 6.93 in Weight 66.9 kg - Renal Dosing Medications needing adjustments: Reviewed - Anticoagulation DVT Prohphylaxis: N/A Therapeutic Anticoagulation: N/A - Opiate Usage Evaluate Pain Scale/Pains Meds: Reviewed Scheduled Bowel Reg ordered if on Opiates?: No - Relevant Labs Electrolytes, C-Reactive P, ESR: N/A - DM Control Insulin Dosing: N/A - Heart Failure/VA EF%, CHARLI's, B-Blockers, Diuretics: Reviewed - BP Control If elevated: N/A - IV to PO Switch IV Medications: N/A - Home Meds Relevent Home Meds Not ordered & why?: vitamin D, vitamin B12, rosuvastatin - Current meds Current Medication Order Review: Reviewed
--- NOTE | 2019-12-05 17:25 | PCPN_ITS ---
Date of service: 12/05/19 Assessment and Plan Assessment and plan (1) Fracture, intertrochanteric, left femur: Status: Acute Assessment and plan: Repaired by Dr Olivarez on 11/29. No complications. Derick still wearing fentanyl patch. Would prefer to wait until he is home to transition him to possible wean off this. Still with furrowed brow. Derick unable to articulate his needs due to his dementia. Qualifiers: Encounter type: initial encounter Fracture type: closed Fracture alignment: displaced Qualified Code(s): S72.142A - Displaced intertrochanteric fracture of left femur, initial encounter for closed fracture (2) Encounter for hospice care discussion: Status: Acute Assessment and plan: Sally, who is his DPOA, would like to bring him home again because she wants to be able to be with him ad james. She understands that due to COVID 19 she cannot visit him at the Rehab. Hospice paperwork has been done. PLANNED READMISSION TO HOSPICE on MondayDEC 08, once he arrives home. I did talk to triage nurse and she will ensure that hospital bed is set up in living room prior to his going home. (3) Pain due to fracture: Status: Chronic Assessment and plan: Should be improved due to the surgery. Reluctant to have him come off his pain medication now. Will transition him to oral morphine solution once he is home. (4) Discharge planning issues: Status: Acute Assessment and plan: Sally suffers from chronic anxiety and constantly second guesses herself so it is hard for her to formulate a plan for her 's care. The plan at this time is for a Monday discharge home on hospice. She does have the option of admitting him to Rehab for 30 days after discharge as he was on acute care status here for some of this admission. Subjective Subjective Patient reports: feels better, pain is less and voiding w/o difficulty Interval history since last seen: I met with Derick, his Sally, and hospital grain sampler Maureen Bowman. Derick looked comfortable. He still has a [address] patch in place. He had his hip repaired on MondayNov 29 without complication. He is now on swing bed status at [facility]. His is planning on taking him home to their house on Dec 08, with hospice services. Sally remains very anxious about whether she is doing the right thing for her . She has a very hard time making up her mind. Derick still has a furrowed brow, which is only visible from the front. From the side, he looks relaxed and comfortable. His reports that at home he does sundown every evening. He has not had that behavior here. He is on his risperidone at home doses. I have not seen any agitation when I have examined him during his acute admission. Exam Const General: cooperative, comfortable, no acute distress and frail appearing (elderly gentleman, older than stated age) Nutritional Appearance: thin Orientation: awake and confused (at baseline, dementia) [facility] Head: normal to inspection, normocephalic and atraumatic Eyes Conjunctivae: conjunctivae normal Sclera: sclerae normal Neck Neck: no lymphadenopathy and no JVD Resp Effort & Inspection: normal respiratory effort (respirations even and unlabored) Cardio Jugular venous pressure: no JVD Rate: regular rate Rhythm: regular rhythm Heart Sounds: S1 normal and S2 normal GI Inspection: normal to inspection Palpation: soft Skin Lesions: other (surgical dressing intact, no surrounding erythema) Neuro General: patient awake Extrem General: no pedal edema
[2019-12-05] MEDS: traMADol 50 MG TAB PO (18:34)
[2019-12-05] MEDS: Donepezil 5 MG TAB 10 MG PO (21:10)
[2019-12-05] MEDS: Senna TAB PO (21:10)
[2019-12-05] MEDS: Melatonin 3 MG TAB 6 MG PO (21:10)
[2019-12-05] MEDS: traZODone 50 MG TAB PO (21:11)
[2019-12-06] MEDS: Acetaminophen 500 MG TAB 1000 MG PO ×3 (06:34→21:16)
[2019-12-06] MEDS: Ketorolac 15 MG/ML VIAL IVP (06:34)
[2019-12-06] MEDS: Levothyroxine 50 MCG TAB PO (06:34)
[2019-12-06] MEDS: Normal Saline Flush 10 ML SYR IVP (06:35)
[2019-12-06 08:25] VITALS: BP 162/74; PULSE 88; RESP 25; O2SAT 99
[2019-12-06] MEDS: Lisinopril 5 MG TAB PO (08:32)
[2019-12-06] MEDS: Finasteride 5 MG TAB PO (08:32)
[2019-12-06] MEDS: risperiDONE 0.5 MG TAB PO ×3 (08:32→21:16)
--- NOTE | 2019-12-06 08:59 | CM.SBPSYCH ---
- If Service Date Differs Date of service: 12/06/19 Time of Service: 08:59 SB Psychosocial/Act.Assessment - Hospital Admission Admission Date: 11/29/19 Admission From:: Home Diagnosis:: Left hip fracture - Swing Bed Admission Swing Bed Admit Date:: 12/04/19 Swing Bed Level of Care: Level 2/ICF - Social Supports PREVIOUS FUNCTIONAL STATUS/SOCIAL/FAMILY SUPPORTS:: Derick lives in [place] with his , Sally. He was previously on Hospice due to his Alzheimers disease. He discharged from Hospice in order to repair his hip fracture, but will His is his special needs child caregiver, whom he is dependent on for his ADL's. - Prior to Admission Living Arrangements/Environment Prior to Admission:: Derick lives at home with his , who provides his care. His sister in law, Kiesha also assists. She is a paid caregiver through [employer], which is a benefit from [facility] highest needs. 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 - Work History Employment Status:: Retired - : Yes - Benefits Financial: Social Security, Medicare, Medicaid - Synagogue Active Restorationism Member:: Yes Restorationism Affliation: Episcopalian Will Restorationism Members or Client Relations Representative Visit:: No - Advance Directives for Healthcare Advance Directives for Healthcare: Advance Directives (COLST on file) Advance Directive Agent: Sally Saleh - Present Functional Status Physical Abilities:: limited, max assist Cognitive:: limited due to diagnosis of dementia Communication:: Limited, due to dementia Behavior:: Mostly calm, some brief periods of agitation - Medical History PAST MEDICAL HISTORY/PAST SURGICAL HISTORY:: Medical History. Aggressive behavior due to dementia. no longer aggressive, per . Alzheimers disease. At risk for unsafe behavior. Benign essential hypertension. Benign prostatic hyperplasia. Benign prostatic hyperplasia with urinary frequency. Chest pain. ETT negative at 10 mets. Roldan-Morse respiration. Cholelithiasis NOS. Chronic ischemic heart disease. IWMI 06/15, stenting RCA with 2 stents; EF 45% multiple WMA; Mild MR; Mild TR. 06/21/02- 3 vessel disease; Prox and mid LAD, Prox LCX, RCA. 10/16/02- Dobut stress echo; No ischemia 130 bpm/84% max pred 10/16. 06/11/06- Stress Test 01/18; EF 45-50%. 03/14/18- 02/21 clinic visit w/ local heel packer/jung. Cognitive disorder. Colonic polyp. CPAP (continuous positive airway pressure) dependence. still wears it regularly. Disturbance of consciousness. Dizziness and giddiness. DNI (do not intubate). DNR (do not resuscitate). Elevated PSA. Bx fibroglandular hyperplasia. Encounter for hospice care discussion. Family history of identical twins. his twin 2012 from Alz Dz. Fatty liver. Frequent falls. Goals of care, counseling/discussion. Hemorrhoids. Hoarding behavior. family trying to get rid of excess. he perseverates on his tools. [place] (hard of hearing). will not wear his hearing aids. hides them. Hyperlipidemia. Hypertriglyceridemia. Impotence. Insomnia. Knee pain. Mixed Alzheimer's and vascular dementia. advanced, severe. Nephrolithiasis. Osteoarthritis. Palliative care patient. POLST (Physician Orders for Life-Sustaining Treatment). DNR/DNI [employer] (08/08/19). Sensorineural hearing loss. Shortness of breath. Sleep apnea, unspecified. Has C-pap machine. Spinal stenosis, lumbar. Squamous cell carcinoma in situ of skin. Subjective tinnitus. Tubular adenoma of colon. Unintentional weight loss. 50 lbs lost in 1 year. Unsteady gait. [place] [employer]. 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 Surgical History. History of cholecystectomy - Admission Data Reason for Swing Bed Admission:: Comfort care, preparation for returning home on Hospice Discharge Plan:: Derick will be discharged home with Hospice support on 12/09/19. He will transport via ambulance, and will be admitted to Hospice once home. Assessment: Derick is an 79 year old male here for a left hip fracture repair with a history of dementia. He was discharged from Hospice in order to have the repair. His plan is to return home once his , Sally has equipment in place and is ready to care for him at home. He received PT at [facility], with comfort as the goal. His bed will be delivered prior to him discharging home. He will remain on SWB 2 until 12/09/19, which is when he will return home with Hospice support. Aviation Warfare Systems Operator: Domenica Maddox Date Assessment was completed:: 12/04/19
--- NOTE | 2019-12-06 16:23 | CHAPLAIN ---
I visited with Sally this morning while Derick was sleeping. The plan remains that Derick will be discharged home on Monday and readmitted to hospice that day. Sally voices some concerns about being able to provide the care needed for Derick, but because she could not visit him if he went to [facility], that is not an option. Sally will have hemp from her sister, Kiesha, and Sally's daughter who lives in [place] and comes over on weekends. Sally said she is not able to sleep when she is alone, so had not had restful nights while Derick is here. She does look tired. She was hoping to be able to sleep this afternoon when she is home with her daughter. She asked that I pray with her and Derick, and I did. Sally said she continues to search for her spiritual life, but said she does believe. Derick sleeps during the day often, sometimes waking up abruptly. He tends to be more awake in the afternoon and evening.
--- NOTE | 2019-12-06 19:01 | NUR.NOTE ---
Nursing Note: new sacral mepilex in place. pt incontinent.
[2019-12-06] MEDS: Senna TAB PO (21:15)
[2019-12-06] MEDS: Melatonin 3 MG TAB 6 MG PO (21:15)
[2019-12-06] MEDS: traZODone 50 MG TAB PO (21:16)
[2019-12-06] MEDS: Donepezil 5 MG TAB 10 MG PO (21:16)
[2019-12-07] MEDS: Lactated Ringers 1,000 ML 30 ML IV (05:34)
[2019-12-07] MEDS: Levothyroxine 50 MCG TAB PO (05:35)
[2019-12-07] MEDS: Acetaminophen 500 MG TAB 1000 MG PO ×2 (05:35→21:13)
[2019-12-07] MEDS: dilTIAZem CD 180 MG CAPCR PO (10:03)
[2019-12-07] MEDS: traMADol 50 MG TAB PO (10:03)
[2019-12-07] MEDS: LORazepam 1 MG TAB PO (10:03)
[2019-12-07] MEDS: DULoxetine 20 MG CAP 40 MG PO (10:03)
[2019-12-07] MEDS: risperiDONE 0.5 MG TAB PO ×3 (10:04→21:13)
[2019-12-07] MEDS: Lisinopril 5 MG TAB PO (10:04)
[2019-12-07] MEDS: Finasteride 5 MG TAB PO (10:04)
[2019-12-07] MEDS: MORPHine 250 MG in Normal Saline 245 ML IV (12:32)
--- NOTE | 2019-12-07 15:37 | PCPN_ITS ---
Date of service: 12/07/19 Assessment and Plan Assessment and plan (1) Fracture, intertrochanteric, left femur: Status: Acute Assessment and plan: Repaired by Dr Olivarez for palliative reasons. Bandage clean and dry. Healing as expected. Qualifiers: Encounter type: initial encounter Fracture type: closed Fracture alignment: displaced Qualified Code(s): S72.142A - Displaced intertrochanteric fracture of left femur, initial encounter for closed fracture (2) Pain due to fracture: Status: Chronic Assessment and plan: Has fentanyl patch in place. Sally was adamantly opposed to morphine CADD pump when he was first admitted with his fracture. Now wanting to try it as it would allow her to give him prn dosing of pain medication without having to help him swallow , Chaning to morphine cadd pump today at 0.5 mg/hr, with same bolus q 15 min. (3) Bedbound: Status: Chronic Assessment and plan: He could bear weight, per ortho, but he remains at very high risk for recurrent fall. Safer for him to be bedbound at this point in his dementia. (4) Dysphagia: Status: Chronic Assessment and plan: worsening needs help being reminded to swallow pocketing food on special consistency (5) Encounter for hospice care discussion: Status: Acute Assessment and plan: Plan is for him to go back on hospice once he is back home. Daughter Antonette thinks her father is close to the end of his life. She expects him to within days to weeks at most. Hard to tell. No signs of active dying, which I reviewed with her and Sally, but she certainly has a close relationship with him. She told me I came to say good-bye to him today. (6) Mixed Alzheimer's and vascular dementia: Status: Chronic Assessment and plan: Primarily AD, but he has risk factors for vascular disease, so likely some component of vasc too. Subjective Subjective Patient reports: still having pain and bowel movement Interval history since last seen: I examined Derick, discussed his care with his nurse, and then met with Derick's , Sally, and daughter, Antonette. Sally vacillates about her decisions regarding discharge. She wants to bring Derick home but is afraid that she won't be able to care for him. We discussed him go ing home, as planned, Emm[place] the with daily nurse and aide visits from hospice. A hospital bed has already been delivered. Sally reports that Derick has been agitated here in the evening and when moved. He will be bedbound at home. Sally is worried about how she will move him to do his personal care. We discussed reviewing this with the ANTIQUE AUTO MUSEUM MAINTENANCE WORKER. We are planning on leaving his zepeda catheter in place. He has a 12 mcg fentanyl patch on his left shoulder. He has been requiring ultram for break-through pain. He has difficulty swallowing pills. Sally is worried about having to give him pills in a hurry, when he is in pain or agitated. His , daughter and I discussed changing him over to a morphine pump so Sally could bolus him as needed. I will ask the hospitalist team to start him today so we can see how he does prior to his discharge home. Exam Const General: cooperative, comfortable, no acute distress and frail appearing (elderly gentleman, older than stated age) Nutritional Appearance: thin Orientation: awake and confused (at baseline, dementia) [facility] Head: normal to inspection, normocephalic and atraumatic Eyes Conjunctivae: conjunctivae normal Sclera: sclerae normal Neck Neck: no lymphadenopathy and no JVD Resp Effort & Inspection: normal respiratory effort (respirations even and unlabored) Cardio Jugular venous pressure: no JVD Rate: regular rate Rhythm: regular rhythm Heart Sounds: S1 normal and S2 normal GI Inspection: normal to inspection Palpation: soft Skin Lesions: other (surgical dressing intact, no surrounding erythema) Neuro General: patient awake Extrem General: no pedal edema Objective Last Vital Signs Pulse 88 12/06/19 08:25 Resp 25 H 12/06/19 08:25 BP 162/74 H 12/06/19 08:25 Pulse Ox 99 12/06/19 08:25
[2019-12-07] MEDS: traZODone 50 MG TAB PO (21:12)
[2019-12-07] MEDS: Melatonin 3 MG TAB 6 MG PO (21:12)
[2019-12-07] MEDS: Donepezil 5 MG TAB 10 MG PO (21:12)
[2019-12-07] MEDS: Senna TAB PO (21:13)
[2019-12-08] MEDS: Levothyroxine 50 MCG TAB PO (05:52)
[2019-12-08] MEDS: Acetaminophen 500 MG TAB 1000 MG PO (05:53)
[2019-12-08] MEDS: Lisinopril 5 MG TAB PO (09:03)
[2019-12-08] MEDS: dilTIAZem CD 180 MG CAPCR PO (09:03)
[2019-12-08] MEDS: DULoxetine 20 MG CAP 40 MG PO (09:03)
[2019-12-08] MEDS: risperiDONE 0.5 MG TAB PO ×3 (09:03→21:17)
[2019-12-08] MEDS: Finasteride 5 MG TAB PO (09:03)
[2019-12-08] MEDS: Bisacodyl 10 MG SUPP PR (11:00)
[2019-12-08] MEDS: Scopolamine 1 MG/3 DAYS PATCH TD (12:12)
[2019-12-08] MEDS: Lactated Ringers 1,000 ML 30 ML IV (12:16)
[2019-12-08] MEDS: LORazepam 1 MG TAB PO (21:17)
[2019-12-08] MEDS: Melatonin 3 MG TAB 6 MG PO (21:17)
[2019-12-08] MEDS: Donepezil 5 MG TAB 10 MG PO (21:17)
[2019-12-08] MEDS: traZODone 50 MG TAB PO (21:17)
[2019-12-08] MEDS: Senna TAB PO (21:17)
[2019-12-09] MEDS: Levothyroxine 50 MCG TAB PO (06:04)
[2019-12-09] MEDS: Lisinopril 5 MG TAB PO (09:37)
[2019-12-09] MEDS: risperiDONE 0.5 MG TAB PO (09:37)
[2019-12-09] MEDS: DULoxetine 20 MG CAP 40 MG PO (09:37)
[2019-12-09] MEDS: dilTIAZem CD 180 MG CAPCR PO (09:37)
[2019-12-09] MEDS: Finasteride 5 MG TAB PO (09:38)
--- NOTE | 2019-12-09 11:03 | DSE_ITS ---
Date of service: 12/09/19 Time of Service: 11:04 DS: Diagnosis Discharge Diagnosis (1) Fracture, intertrochanteric, left femur: Start date: 12/09/19 Start time: 11:05 Status: Acute Asessment and Plan: Repaired for palliative reasons. Will go home on hospice with morphine CAD in place. and Zepeda (2) Pain due to fracture: Start date: 12/09/19 Start time: 11:06 Status: Chronic Asessment and Plan: On morphine as above (3) Bedbound: Start date: 12/09/19 Start time: 11:07 Status: Chronic Asessment and Plan: Advanced dementia, on hospice. OOB to chair with little ambulation (4) Dysphagia: Start date: 12/09/19 Start time: 11:07 Status: Chronic Asessment and Plan: continue current regimen. On hospice. (5) Mixed Alzheimer's and vascular dementia: Start date: 12/09/19 Start time: 11:07 Status: Chronic Asessment and Plan: monitor for safety will have caregivers with him and hospice. above case discussed with Dr. Mclean who is in agreement Discharge Plan Disposition Patient Disposition: HOME Condition: Stable Discharge Details Reason For Visit: LEFT HIP FRACTURE Admit Date/Time: 12/04/19 14:38 Admit Provider: Landon Quiles Attending Provider: Landon Quiles Primary Care Provider: JessiMclean [place] [facility] Hospital Course: 79 y.o male with advanced dementia on hospice, admitted to [facility] m/s after sustaining hip fracture. Initially he was admitted under hospice. Patients was not on board with palliative hip repair, however after a couple days she was agreeable to hip repair. He was then taken off hospice and put under hospitalist service. Palliative care consulted, hip repair on 11/30/2019. After surgery he was placed on fentanyl patch for pain with morphine as needed. Palliative met with patient and on Monday. was agreeable to morphine infusion, he was started on low dose morphine at 0.5 mg/hr. He did work with PT and was able to get to chair with 2 assist. He is confused, unable to communicate wants or needs. Zepeda catheter in place. He is being discharged home on hospice with CAD pump in place. Home Meds and New Rx's Prescriptions: Continued risperidone [Risperdal] 0.5 mg tablet 0.5 mg PO TID RF: 0 donepezil [Aricept] 10 mg tablet 10 mg PO DAILY RF: 0 vitamin E 400 unit capsule 400 unit PO DAILY RF: 0 melatonin 3 mg capsule 6 mg PO HS RF: 0 trazodone 50 mg tablet 50 mg PO QHS RF: 0 rosuvastatin 40 mg tablet 20 mg PO DAILY RF: 0 lisinopril 5 mg tablet 5 mg PO DAILY RF: 0 levothyroxine 50 mcg capsule 50 mcg PO DAILY RF: 0 finasteride 5 mg tablet 5 mg PO DAILY RF: 0 duloxetine 20 mg capsule,delayed release(DR/EC) 40 mg PO DAILY RF: 0 diltiazem HCl [Tiazac] 180 mg capsule,extended release 24 hr 180 mg PO DAILY RF: 0 cyanocobalamin (vitamin B-12) 1,000 mcg tablet 1,000 mcg PO DAILY RF: 0 cholecalciferol (vitamin D3) 25 mcg (1,000 unit) capsule 25 mcg PO DAILY RF: 0 carboxymethylcellulose sodium 0.5 % drops 1 drp OP QID RF: 0 carbamide peroxide 6.5 % drops 2 drp OT DAILY RF: 0 Discharge Instructions Instructions: Hip Fracture (GEN) Additional Instructions: Discharge home on hospice Defer to hospice for management of medication Continue CAD morphine Activity:: Activity as Tolerated Equipment/Supplies:: No Equipment Needed Diet:: As Tolerated Discharge Orders Discharge Orders: Discharge Order (Routine); Ordered 12/09/19 Ordered By: Kaleigh Issa DS: Summary Status at Discharge Functional status at discharge: bed bound Overall status at discharge: patient is not back to baseline Mental Status: other Speech and Movement: speech and movement normal Mood: other Affect: other Exam Const General: cooperative, comfortable, no acute distress and frail appearing (elderly gentleman, older than stated age) Nutritional Appearance: thin Orientation: alert, awake and confused (at baseline, dementia) HENMT Head: normal to inspection, normocephalic and atraumatic Eyes Conjunctivae: conjunctivae normal Sclera: sclerae normal Neck Neck: no lymphadenopathy and no JVD Resp Effort & Inspection: normal respiratory effort (respirations even and unlabored) Cardio Jugular venous pressure: no JVD Rate: regular rate Rhythm: regular rhythm Heart Sounds: S1 normal and S2 normal GI Inspection: normal to inspection Palpation: soft Skin Lesions: other (surgical dressing intact, no surrounding erythema) Neuro General: patient alert and patient awake Extrem General: no pedal edema Psych Mental Status: other Speech and Movement: speech and movement normal Mood: other Affect: other DS: Data Vitals/I&O Vitals and I&O: Vital Signs Pulse 88 12/06/19 08:25 Pulse Rhythm Regular 12/05/19 21:16 Respiratory Rate 25 H 12/06/19 08:25 Respiratory Effort Non-Labored 12/09/19 02:52 Respiratory Depth Normal 12/09/19 02:52 Respiratory Pattern Normal 12/09/19 02:52 Blood Pressure 162/74 H 12/06/19 08:25 Pulse Oximetry 99 12/06/19 08:25 Oxygen Delivery Method Cpap 12/09/19 07:18 Oxygen Flow Rate 0 12/09/19 07:18 Fraction of Inspired Oxygen (FIO2) 21 12/09/19 00:26 Intake & Output 12/08/19 12/08/19 12/09/19 11:59 23:59 11:59 Intake Total 6.858 / 8685.189 2312.334 / 1053.192 4.017 / 4.017 Output Total 100 / 350 250 / 350 300 / 300 Balance -93.142 / 703.192 796.334 / 703.192 -295.983 / -295.983 Intake: IV 6.858 / 933.192 926.334 / 933.192 4.017 / 4.017 Oral 120 / 120 Output: Urine 100 / 350 250 / 350 300 / 300 Other: Urine Color Yellow Dark Maggi Urine Appearance Clear Clear Clear Comment taught Pt's how to empty zepeda catherter. Stool Size Smear Smear Stool Characteristics Brown Soft Liquid Data Completed and Pending Completed studies during hospitalization [Text1]: Exam(s) a RAD:XR hip LT in OR EXAM: XR HIP LT IN OR CLINICAL HISTORY: left hip fracture. TECHNIQUE: 2D and realtime digital imaging was performed. COMPARISON: CR,XR XR HIP LT COMPLETE AP PELVIS from 11/27/2019 FINDINGS: Fluoroscopy was provided in the OR for Dr. Olivarez. Hard copy images show placement of hardware in the proximal left femur for fracture fixation. The alignment appears anatomic FLUORO TIME: 77.4 seconds Please see procedure note for details. PFSH Medical History Aggressive behavior due to dementia no longer aggressive, per Alzheimers disease At risk for unsafe behavior Bedbound Benign essential hypertension Benign prostatic hyperplasia Benign prostatic hyperplasia with urinary frequency CAD (coronary artery disease) Chest pain ETT negative at 10 mets Roldan-Morse respiration Cholelithiasis NOS Chronic ischemic heart disease IWMI 06/15, stenting RCA with 2 stents; EF 45% multiple WMA; Mild MR; Mild TR 06/21/02- 3 vessel disease; Prox and mid LAD, Prox LCX, RCA 10/16/02- Dobut stress echo; No ischemia 130 bpm/84% max pred 10/1606/11/06- Stress Test 01/18; EF 45-50% 03/14/18- 02/21 clinic visit w/ local supervisor sanding/jung Cognitive disorder Colonic polyp CPAP (continuous positive airway pressure) dependence still wears it regularly Disturbance of consciousness Dizziness and giddiness DNI (do not intubate) DNR (do not resuscitate) Dysphagia Elevated PSA Bx fibroglandular hyperplasia Encounter for hospice care discussion Family history of identical twins his twin 2012 from Alz Dz Fatty liver Frequent falls Goals of care, counseling/discussion Hemorrhoids Hoarding behavior family trying to get rid of excess he perseverates on his tools [place] (hard of hearing) will not wear his hearing aids hides them Hospice care patient Hyperlipidemia Hypertriglyceridemia Impotence Insomnia Knee pain Mixed Alzheimer's and vascular dementia advanced, severe Nephrolithiasis Osteoarthritis Pain due to fracture Palliative care patient POLST (Physician Orders for Life-Sustaining Treatment) DNR/DNI SENIOR CONTROLS ANALYST (08/08/19) Sensorineural hearing loss Shortness of breath Sleep apnea, unspecified Has C-pap machine Spinal stenosis, lumbar Squamous cell carcinoma in situ of skin Subjective tinnitus Tubular adenoma of colon Unintentional weight loss 50 lbs lost in 1 year 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 Do you need help understanding health information?: Always current occupation: retired from [employer], [employer] What is your relationship status?: How often do you talk on the phone with friends or family?: never How often do you get together with friends or relatives?: twice per week Panel score (0-1 are the most socially isolated patients): 1 What type of physical activity do you participate in: walking and assisted ambulation Duration: 15-30 minutes/day Frequency: daily Special jamaal needs: No Seatbelt use: always Working smoke detector in home: Yes Fire extinguisher in home: Yes Do you feel safe at home: Yes Do you feel safe in your relationship?: Yes Additional Social history: Sally and [id number] Kiesha are his primary caregivers. Daughter lives in [place], but comes and helps when she can on weekends. Estranged from only son in [place]. He has 2 children, also out of touch. Wandering at night. exhausted. Continues to decline dramatically in 2020. Qualifies for hospice; not quite ready for this. Consult ordered Derick hides his hearing aids, refuses to wear them and his glasses. Does wear his CPAP at night though. Hasn't fallen recently. Very unsteady gait, very difficult to get out of his chair.
[2019-12-09] MEDS: LORazepam 2 MG/ML VIAL 1 MG IM (13:00)
--- NOTE | 2019-12-09 14:12 | CMDISCH_ITS ---
- If Service Date Differs Date of service: 12/09/19 Time of Service: 14:12 LACE Index Scoring Tool - Questions: Length of Stay (in days): 4 - 6 Acuity (Admit via E.D.?): No Comorbidities: Previous M.I., Any Tumor, Dementia E.D. Visits: 2 - Answers: Total Score: 11 Risk of Readmission: High Risk Care Management Discharge Reason for Hospitalization: Left Hip Fracture Discharge Plan: Derick will return home today with his . He will transport via [facility]. The merchandise executive started their CADD pump prior to him returning home. Hospice will admit him after he is settled at home. Sally is nervous, but happy to have him home with her. A hospital bed was delivered already to the home. Sally will have support from her sister, Apryl, as well as Hospice, who will be visiting daily. Patient/Family Education Needs: Review discharge instructions regarding medications and comfort care, discussion of expectations of Hospice. Services Needed at Discharge: Home Health Care Services (Hospice), Tr ansportation ([facility])
--- NOTE | 2019-12-09 16:20 | CHAPLAIN ---
I spent some time with Sally before Derick was discharged. He was sleeping in the recliner. Sally said she wished she believed more and that she has always questioned her belief in God and heaven.We talked about love being central to God's sloane and desire for us, and that she and Derick represent a great deal of love to each other and others. I offered a prayer with Derick and Sally.
--- NOTE | 2019-12-12 12:57 | INDS_ITS ---
Date of service: 12/12/19 Time of Service: 12:57 PT Notes Visit Reasons: LEFT HIP FRACTURE Inpatient Physical Therapy Discharge Summary Date: 12/12/19 Dates of service:12/01/2019 through 12/04/2019 This is a clinical summary of care provided on the duration of dates listed above. No charge was made in the completion of this documentation. Referring Doctor: Jeffery Olivarez MD PT Orders: PT CONSULT: Evaluate and Treat Precautions: WBAT on Left LE Patient Profile/Admitting Diagnosis: Orders received for this 79-year-old male with a history of advanced dementia. Patient has been on hospice and homebound recently. He has been having more more functional decline and greater instability with standing. He has fallen several times in the last 2 months the most recent was last week and ended up a fracture through the low lower extremity in the femur. Due to the severity of pain it was a low to proceed with a reduction of the fracture. Surgery was completed yesterday and was successful. Orders have been initiated for postop PT services mainly for early mobilization PMHX: Medical History Aggressive behavior due to dementia no longer aggressive, per Alzheimers disease At risk for unsafe behavior Benign essential hypertension Benign prostatic hyperplasia Benign prostatic hyperplasia with urinary frequency CAD (coronary artery disease) Chest pain ETT negative at 10 mets [place]-Morse respiration Cholelithiasis NOS Chronic ischemic heart disease IWMI 06/15, stenting RCA with 2 stents; EF 45% multiple WMA; Mild MR; Mild TR 06/21/02- 3 vessel disease; Prox and mid LAD, Prox LCX, RCA 10/16/02- Dobut stress echo; No ischemia 130 bpm/84% max pred 10/1606/11/06- Stress Test 01/18; EF 45-50% 03/14/18- 02/21 clinic visit w/ local method consultant/niacin Cognitive disorder Colonic polyp CPAP (continuous positive airway pressure) dependence still wears it regularly Disturbance of consciousness Dizziness and giddiness DNI (do not intubate) DNR (do not resuscitate) Elevated PSA Bx fibroglandular hyperplasia Encounter for hospice care discussion Family history of identical twins his twin 2012 from [place] [place] Fatty liver Frequent falls Goals of care, counseling/discussion Hemorrhoids Hoarding behavior family trying to get rid of excess he perseverates on his tools [place] (hard of hearing) will not wear his hearing aids hides them Hospice care patient Hyperlipidemia Hypertriglyceridemia Impotence Insomnia Knee pain Mixed Alzheimer's and vascular dementia advanced, severe Nephrolithiasis Osteoarthritis Pain due to fracture Palliative care patient POLST (Physician Orders for Life-Sustaining Treatment) DNR/DNI 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 See most recent [employer] notes. Objective: NT. See most recent [employer] notes. Mental Status: NT. See most recent [employer] notes. Pain: NT. See most recent [employer] notes. ROM: Right Upper Extremity: Within functional Left Upper Extremity: Functional limits Right Lower Extremity: 90 degrees of hip flexion, 90 degrees of knee flexion to 0 degrees of extension Left Lower Extremity: 90 degrees of hip flexion, 90 degrees knee flexion to 0 degrees of extension Strength: Right Upper Extremity: Difficult to assess due to patient noncompliance but patient at least to hold against gravity Left Upper Extremity: Difficult to assess due to patient noncompliance but patient at least to hold against gravity Right Lower Extremity: Difficult to assess due to patient noncompliance but patient at least to hold against gravity Left Lower Extremity: Difficult to assess due to patient noncompliance but patient at least to hold against gravity Patient was able to respond to 1 minimal command of extending his right knee which he was able to do to about 45 degrees repetitively Bed Mobility/Transfers: Max 2 for bed rolling Supine-sit: Max of 2 Sit-stand: Max of 2 Gait: Unable. Transfers only. Balance: Static Sitting: Poor Dynamic Sitting: Poor ASSESSMENT: Patient has now reached highest functional level requiring extensive assist of 2 caregivers for safety. He is no longer appropriate for continued services time due to cognitive level. Nursing staff has been trained for safe transfer techniques requiring assist of 2 per protocol. Goals: Goals X1 week 1. Supine-Sit Mod Assist x 1 NOT MET 2. Sit-Supine Mod Assist x 1 NOT MET 3. Sit-Stand Mod Assist x 1 NOT MET 4. Stand-Sit Mod Assist x 1 NOT MET 5. Bed-Chair Mod Assist x 1 with stand pivot transfer NOT MET DISCHARGE RECOMMENDATIONS: SNF versus SB to when medically appropriate. TREATMENT CODE/TIME: NC Thank you for the opportunity to participate in the care of this patient. Christina Munoz PT, DPT, CLT [facility] [place], [place]
== END 2019-12-09 14:12 | disposition home or self-care (01) | DRG 561 ==
PROVIDERS: Admitting Provider Internal Medicine; PCP Family Medicine; Visit Provider Internal Medicine
DX: S72.142D Displaced intertrochanteric fracture of left femur, subsequent encounter for closed fracture with routine healing (principal); W19.XXXD Unspecified fall, subsequent encounter; Z51.5 Encounter for palliative care; G30.9 Alzheimer's disease, unspecified; F02.80 Dementia in other diseases classified elsewhere, unspecified severity, without behavioral disturbance, psychotic disturbance, mood disturbance, and anxiety; F01.50 Vascular dementia, unspecified severity, without behavioral disturbance, psychotic disturbance, mood disturbance, and anxiety; I10 Essential (primary) hypertension; N40.1 Benign prostatic hyperplasia with lower urinary tract symptoms; R35.0 Frequency of micturition; I25.10 Atherosclerotic heart disease of native coronary artery without angina pectoris; Z66 Do not resuscitate; K76.0 Fatty (change of) liver, not elsewhere classified; R29.6 Repeated falls; Z91.81 History of falling; E78.5 Hyperlipidemia, unspecified; M19.90 Unspecified osteoarthritis, unspecified site; G47.00 Insomnia, unspecified; H90.3 Sensorineural hearing loss, bilateral; M48.061 Spinal stenosis, lumbar region without neurogenic claudication; R13.10 Dysphagia, unspecified
CPT/HCPCS: 99233; 99305; 99316; J1885; J2060